=== PATIENT | male | born 1990 | race American Indian/Alaskan Native ===

== ENCOUNTER 2016-12-22 13:43 | Inpatient (IN) | payer MEDICAID, OTHER ==
[2016-12-22 13:44] VITALS: BMI 43.0
[2016-12-22 14:02] VITALS: O2SAT 98
--- NOTE | 2016-12-22 14:06 | ED PDOC ---
Psych Transfer Clearance - Clearance Statement Clearance Statement: Reviewed vital signs, lab results and transfer papers. Patient clinically stable for psychiatric admission.
[2016-12-22] MEDS ORDERED: Magnesium Hydroxide Susp 30 ml UD PO PRN (16:24)
[2016-12-22] MEDS ORDERED: Alum-Mag Hydrox-Simethicone Susp (30 mL) PO PRN (16:24)
[2016-12-22] MEDS ORDERED: Influenza Vaccine(5yr & older) 0.5 ML/45 MCG IM ONE (18:00)
[2016-12-22] MEDS ORDERED: Pneumococcal 23-Valent Vaccine IM ONE (18:00)
[2016-12-23] MEDS ORDERED: DiphenhydrAMINE 50 mg/ml Inj IM PRN (00:06)
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
[2016-12-23 08:04] LABS: T4 6.66 ug/dl (5.5-11.0)
[2016-12-23 08:17] LABS: THYROID STIMULATING HORMONE 1.08 mIU/ML (0.46-4.68)
[2016-12-23] MEDS: Divalproex 500 mg DR(BID formulation) PO SCH ×2 (08:29→16:42)
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
--- NOTE | 2016-12-23 12:08 | RAD ---
HISTORY: new admit COMPARISON: No prior. FINDINGS: LUNGS: The lungs are clear. There is bibasilar atelectasis. PLEURA: No significant pleural effusion identified, no pneumothorax apparent. CARDIOVASCULAR: Normal. OSSEOUS STRUCTURES: No significant abnormalities. VISUALIZED UPPER ABDOMEN: Normal. OTHER FINDINGS: None. IMPRESSION: No active pulmonary disease.
--- NOTE | 2016-12-23 12:22 | PCM.PYCHPN ---
Psychiatric Progress Note - Psychiatric Progress Note Patient seen today, length of contact: Patient evaluated, case discussed with team, chart reviewed Patient Chief Complaint: "What do you want?" Problems Identified/Issues Discussed: Patient is abrasive and evasive, unwilling to engage in interview with the news writer. He is unwilling to discuss his history or medications. 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 He was irritable and difficult to engage. Patient also refused to attend treatment planning team. Medication Change: No Medical Record Reviewed: Yes Mental Status Examination - Cognitive Function Orientation: Person, Place, Situation, Time Memory: Intact (Patient unwilling to engage in interview with the news writer) Attention: WNL Concentration: WNL Association: WNL Fund of Knowledge: WN Decription of patient's judgement and insights: Unable to full assess insight/judgment due to patient's unwillingness to talk with the news writer, but at this time it seems that the patient may be internally preoccupied with poor insight/judgment. - Mood Mood: Depressed - Affect Affect: Constricted - Speech Speech: Appropriate - Formal Thought Process Formal Thought Process: Paranoia, Other (Patient is evasive, likely paranoid and internally preoccupied) Psychotic Thoughts and Behaviors: Unwilling to answer if he is having AH/VH - Suicidal Ideation Suicidal Ideation: No - Homicidal Ideation Homicidal Ideation: No Goal/Treatment Plan - Goal/Treatment Plan Need for Continued Stay: Remain at risks for inpatient hospitalization, Discharge may exacerbated symptoms Progress Toward Problem(s) and Goals/Treatment Plan: 26 yo male with history of schizoaffective disorder vs. bipolar disorder, currently evasive, menacing and unwilling to engage in interview with the news writer. Patient needs continued inpatient hospitalization for treatment and stabilization. -Continue current medications -Will attempt to reengage the patient when he is calmer -Medicine consult appreciated
--- NOTE | 2016-12-23 14:39 | CARD ---
APPROVED REPORT EKG Measurement Heart [id number] <Conclusion> Normal sinus rhythm with sinus arrhythmia Normal ECG
[2016-12-24] MEDS: Divalproex 500 mg DR(BID formulation) PO SCH ×2 (09:10→16:33)
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
[2016-12-25] MEDS: Divalproex 500 mg DR(BID formulation) PO SCH (10:02)
--- NOTE | 2016-12-25 11:54 | PCM.PYCHPN ---
Psychiatric Progress Note - Psychiatric Progress Note Patient seen today, length of contact: discussed with team Patient Chief Complaint: i'll let you know Problems Identified/Issues Discussed: pt observed spitting meds in trash, which has been suspected. rn this am found pills in trash can. pt's depakote level is <10. pt appears to be internally preoccupied and paranoid. he denies that he cheeks his medications. he is irritable and walks away when this publications writer attempts to talk to him. Medication Change: No Medical Record Reviewed: Yes Mental Status Examination - Cognitive Function Orientation: Person, Place, Situation, Time Memory: Intact Attention: WNL Concentration: WNL Association: WN Fund of Knowledge: [facility] Decription of patient's judgement and insights: fair - Mood Mood: Depressed, Other (irritable) - Affect Affect: Constricted - Speech Speech: Appropriate - Formal Thought Process Formal Thought Process: Paranoia, Other (Patient is evasive) Psychotic Thoughts and Behaviors: paranoid, internally preoccupied - Suicidal Ideation Suicidal Ideation: Yes Plan: reports he has suicidal thoughts, but feels safe in hospital - Homicidal Ideation Homicidal Ideation: No Goal/Treatment Plan - Goal/Treatment Plan Need for Continued Stay: Remain at risks for inpatient hospitalization, Discharge may exacerbated symptoms Progress Toward Problem(s) and Goals/Treatment Plan: depression unspecified history of substance abuse continue current treatment- will change medications to liquid form t/c screening for involuntary hospitalization Estimated Date of D/C: 12/25/16
[2016-12-25] MEDS: Haloperidol Lactate 2 mg/ml Liquid PO SCH ×2 (15:20→16:57)
[2016-12-25] MEDS ORDERED: Divalproex 125 mg Sprinkle Capsule PO SCH (17:00)
[2016-12-25] MEDS: Valproic Acid 250 mg/5 ml UD Cup PO SCH (17:00)
[2016-12-26] MEDS: Haloperidol Lactate 2 mg/ml Liquid PO SCH (08:44)
[2016-12-26] MEDS: Valproic Acid 250 mg/5 ml UD Cup PO SCH ×2 (08:44→18:29)
--- NOTE | 2016-12-26 09:32 | PCM.PYCHPN ---
Psychiatric Progress Note - Psychiatric Progress Note Patient seen today, length of contact: discussed with team Patient Chief Complaint: i am taking my medication Problems Identified/Issues Discussed: pt observed cheeking meds. now is taking liquid meds reluctantly. he denies that he was cheeking meds despite being confronted with pills in trash and low depakote level. he is not attending groups. still appears to be internally preoccupied and is pacing. no evidence of side effects with meds Medication Change: Yes (have changed to liquid meds) Medical Record Reviewed: Yes Mental Status Examination - Cognitive Function Orientation: Person, Place, Situation, Time Memory: Intact Attention: WNL Concentration: WNL Association: WNL Fund of Knowledge: [facility] Decription of patient's judgement and insights: superficial insight - Mood Mood: Other (irritable) - Affect Affect: Constricted - Speech Speech: Appropriate - Formal Thought Process Formal Thought Process: Paranoia, Other (Patient is evasive) - Suicidal Ideation Suicidal Ideation: No Plan: denies - Homicidal Ideation Homicidal Ideation: No Goal/Treatment Plan - Goal/Treatment Plan Need for Continued Stay: Remain at risks for inpatient hospitalization, Discharge may exacerbated symptoms Progress Toward Problem(s) and Goals/Treatment Plan: depression unspecified history of substance abuse continue current treatment- will monitor for side effects, check depakote level in 2 days Estimated Date of D/C: 12/25/16
[2016-12-27] MEDS: Valproic Acid 250 mg/5 ml UD Cup PO SCH ×2 (09:13→17:20)
--- NOTE | 2016-12-27 11:33 | PCM.PYCHPN ---
Psychiatric Progress Note - Psychiatric Progress Note Patient seen today, length of contact: discussed with team Patient Chief Complaint: what is the treatment plan Problems Identified/Issues Discussed: pt now taking meds. still internally preoccupied. seems less paranoid. minimizing psychotic symptoms. states suicidal thoughts are less. Medication Change: No ( ) Medical Record Reviewed: Yes Mental Status Examination - Cognitive Function Orientation: Person, Place, Situation, Time Memory: Intact Attention: WNL Concentration: WNL Association: WNL Fund of Knowledge: [facility] Decription of patient's judgement and insights: fair - Mood Mood: Other (irritable) - Affect Affect: Constricted - Speech Speech: Appropriate - Formal Thought Process Formal Thought Process: Paranoia, Other (Patient is evasive) - Suicidal Ideation Suicidal Ideation: No - Homicidal Ideation Homicidal Ideation: No Goal/Treatment Plan - Goal/Treatment Plan Need for Continued Stay: Remain at risks for inpatient hospitalization, Discharge may exacerbated symptoms Progress Toward Problem(s) and Goals/Treatment Plan: depression unspecified history of substance abuse continue current treatment- will monitor for side effects, check depakote level tomorrow arrange aftercare/discharge next week Estimated Date of D/C: 12/31/16
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
[2016-12-28] MEDS: Valproic Acid 250 mg/5 ml UD Cup PO SCH ×2 (09:08→17:13)
--- NOTE | 2016-12-28 11:53 | PCM.PYCHPN ---
Psychiatric Progress Note - Psychiatric Progress Note Patient seen today, length of contact: discussed with team Patient Chief Complaint: pt has remained internally preoccupied with disorganized thinking Problems Identified/Issues Discussed: admitted for suicidal attempt by trying to jump [place] and has been overtly psychotic and paranoid and noncompliant with meds. DSM 5 Symptoms Update: schizoaffective disorder Medication Change: No ( ) Medical Record Reviewed: Yes Mental Status Examination - Cognitive Function Orientation: Person, Place, Situation, Time Memory: Intact Attention: Poor Concentration: Poor Association: WNL Fund of Knowledge: WNL - Mood Mood: Other (irritable) - Affect Affect: Constricted - Speech Speech: Appropriate - Formal Thought Process Formal Thought Process: Paranoia, Other (Patient is evasive) - Suicidal Ideation Suicidal Ideation: No - Homicidal Ideation Homicidal Ideation: No Goal/Treatment Plan - Goal/Treatment Plan Need for Continued Stay: Remain at risks for inpatient hospitalization, Discharge may exacerbated symptoms Progress Toward Problem(s) and Goals/Treatment Plan: will continue to titrate meds based on VPA level and encourage compliance with meds. VPA= 41 will increase depakote to 750 mg bid to stabilize the mood and engage pt in therapy. Estimated Date of D/C: 12/31/16
[2016-12-29] MEDS: Valproic Acid 250 mg/5 ml UD Cup PO SCH ×2 (08:36→16:55)
--- NOTE | 2016-12-29 13:21 | PCM.PYCHPN ---
Psychiatric Progress Note - Psychiatric Progress Note Patient seen today, length of contact: discussed with team Patient Chief Complaint: pt has remained internally preoccupied with disorganized thinking Problems Identified/Issues Discussed: admitted for suicidal attempt [place] and has been overtly psychotic and paranoid and noncompliant with meds. DSM 5 Symptoms Update: schizoaffective disorder Medication Change: No ( ) Medical Record Reviewed: Yes Mental Status Examination - Cognitive Function Orientation: Person, Place, Situation, Time Memory: Intact Attention: Poor Concentration: Poor Association: WNL Fund of Knowledge: WNL - Mood Mood: Other (irritable) - Affect Affect: Constricted - Speech Speech: Appropriate - Formal Thought Process Formal Thought Process: Paranoia, Other (Patient is evasive) - Suicidal Ideation Suicidal Ideation: No - Homicidal Ideation Homicidal Ideation: No Goal/Treatment Plan - Goal/Treatment Plan Need for Continued Stay: Remain at risks for inpatient hospitalization, Discharge may exacerbated symptoms Progress Toward Problem(s) and Goals/Treatment Plan: will continue to titrate meds based on VPA level and encourage compliance with meds. VPA= 41 will increase depakote to 750 mg bid to stabilize the mood and engage pt in therapy. will continue to titrate the meds to stabilize the pt. Estimated Date of D/C: 12/31/16
[2016-12-30] MEDS: Valproic Acid 250 mg/5 ml UD Cup PO SCH ×2 (09:06→16:53)
--- NOTE | 2016-12-30 12:45 | PCM.PYCHPN ---
Psychiatric Progress Note - Psychiatric Progress Note Patient seen today, length of contact: discussed with team Patient Chief Complaint: when can i go home Problems Identified/Issues Discussed: pt seen in team. he is more goal directed and less paranoid. he is able to advocate for his needs and is feeling he wants to leave soon. he is asking for aftercare to be arrange. he states he will take his medications out of the hospital. he denies any side effects. Medication Change: No ( ) Medical Record Reviewed: Yes Mental Status Examination - Cognitive Function Orientation: Person, Place, Situation, Time Memory: Intact Attention: WNL Concentration: WNL Association: [facility] Fund of Knowledge: [facility] Decription of patient's judgement and insights: improved - Mood Mood: Other (irritable) - Affect Affect: Constricted - Speech Speech: Appropriate - Formal Thought Process Formal Thought Process: Paranoia - Suicidal Ideation Suicidal Ideation: No - Homicidal Ideation Homicidal Ideation: No Goal/Treatment Plan - Goal/Treatment Plan Need for Continued Stay: Remain at risks for inpatient hospitalization, Discharge may exacerbated symptoms Progress Toward Problem(s) and Goals/Treatment Plan: depression unspecified history of substance abuse continue current treatment- discharge friday with f/u at [facility] and [place] [facility] [place] Estimated Date of D/C: 01/01/17
--- NOTE | 2016-12-31 09:34 | PCM.PYCHPN ---
Psychiatric Progress Note - Psychiatric Progress Note Patient seen today, length of contact: discussed with team Patient Chief Complaint: i am just resting doc Problems Identified/Issues Discussed: pt denies medication side effects. less isolative. states he wants to go home tomorrow. Medication Change: No ( ) Medical Record Reviewed: Yes Mental Status Examination - Cognitive Function Orientation: Person, Place, Situation, Time Memory: Intact Attention: WNL Concentration: WNL Association: WNL Fund of Knowledge: [facility] Decription of patient's judgement and insights: fair - Mood Mood: Neutral - Affect Affect: Constricted - Speech Speech: Appropriate - Formal Thought Process Formal Thought Process: Other (somewhat internally preoccupied) - Suicidal Ideation Suicidal Ideation: No - Homicidal Ideation Homicidal Ideation: No Goal/Treatment Plan - Goal/Treatment Plan Need for Continued Stay: Remain at risks for inpatient hospitalization, Discharge may exacerbated symptoms Progress Toward Problem(s) and Goals/Treatment Plan: depression unspecified history of substance abuse continue current treatment- discharge tomorrow with f/u at [facility] and a php program at [facility] [place] Estimated Date of D/C: 01/01/17
[2016-12-31] MEDS: Valproic Acid 250 mg/5 ml UD Cup PO SCH ×2 (09:38→16:20)
--- NOTE | 2016-12-31 09:38 | CP.PCM.PN ---
Subjective - Date & Time of Evaluation Date of Evaluation: 12/31/16 Time of Evaluation: 09:35 - Subjective Subjective: 26 year old male was seen resting comfortably at bedside for follow up of fissure to the bottom of right hallux. Patient is in no acute distress. He denies any pain to his foot. Denies n/v/f/c/sob/cp. Objective - Vital Signs/Intake and Output Vital Signs (last 24 hours): Temp Pulse Resp BP Pulse Ox 97.2 F L 54 L 18 119/60 98 12/31/16 09:00 12/31/16 09:00 12/31/16 09:00 12/31/16 09:00 12/22/16 13:57 - Medications Medications: Current Medications Acetaminophen (Tylenol 325mg Tab) 650 mg PO Q4 PRN PRN Reason: Pain, moderate (4-7) Al Hydrox/Mg Hydrox/Simethicone (Maalox Plus 30 Ml) 30 ml PO Q4 PRN PRN Reason: Dyspepsia Benztropine Mesylate (Cogentin) 1 mg PO BID [facility] Last Admin: 12/30/16 09:08 Dose: 1 mg Diphenhydramine HCl (Benadryl) 50 mg PO Q6 PRN PRN Reason: Extrapyramidal Symptoms Last Admin: 12/24/16 19:36 Dose: 50 mg Diphenhydramine HCl (Benadryl) 50 mg IM Q6 PRN PRN Reason: EPS if unable to take po Diphenhydramine HCl (Benadryl) 50 mg PO HS PRN PRN Reason: Sleep Haloperidol (Haldol) 5 mg PO Q4 PRN PRN Reason: Agitation Haloperidol (Haldol) 10 mg PO BID [facility] Last Admin: 12/30/16 16:54 Dose: 10 mg Haloperidol Lactate (Haldol) 5 mg IM Q4 PRN PRN Reason: Agitation, Unable to Take PO Lorazepam (Ativan) 2 mg PO Q6 PRN PRN Reason: Anixety/Agitation Stop: 01/05/17 16:25 Last Admin: 12/24/16 19:36 Dose: 2 mg Lorazepam (Ativan) 2 mg IM Q4 PRN PRN Reason: Anxiety/Agitation,Unable PO Magnesium Hydroxide (Milk Of Magnesia) 30 ml PO HS PRN PRN Reason: Constipation Sertraline HCl (Zoloft) 50 mg PO DAILY [facility] Last Admin: 12/30/16 09:08 Dose: 50 mg Trazodone HCl (Desyrel) 50 mg PO HS [facility] Last Admin: 12/30/16 21:15 Dose: 50 mg Valproate Sodium (Depakene Oral Soln) 750 mg PO BID [facility] Last Admin: 12/30/16 16:53 Dose: 750 mg - Constitutional Appears: Well, Non-toxic, No Acute Distress - Extremities Exam Additional comments: Right lower extremity focused exam: VASC: Palpable DP and PT noted 2/4 bilaterally. 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 No drainage, no active bleeding. No erythema or sign of infection. Plantar aspect of feet noted to be xerotic bilaterally. Hyperkeratotic calluses also noted to lateral aspect of 5th digit DPIJ bilaterally, as well as medial aspect of distal hallux bilaterally. ORTHO: Tenderness on palpation to plantar aspect of hallux IPJ bilaterally NEURO: Gross sensation intact - Neurological Exam Neurological Exam: Alert, Awake, Oriented x3 - Psychiatric Exam Psychiatric exam: Normal Affect, Normal Mood Assessment and Plan - Assessment and Plan (Free Text) Assessment: 26 year old male patient with small lesion to plantar aspect of right hallux IPJ , multiple callus build up bilateral feet Plan: Patient examined and evaluated Chart and vitals reviewed Discussed with attending, Dr. Aquino labs and vitals reviewed Right foot hallux lesion dressed with betadine and DSD Recommended lotion be applied to feet b/l. Patient refused lotion Patient stable from podiatry standpoint. Podiatry will follow in-house
[2017-01-01 09:11] VITALS: BP 121/65; PULSE 59; RESP 18; TEMP 98.1
[2017-01-01] MEDS: Valproic Acid 250 mg/5 ml UD Cup PO SCH (09:16)
--- NOTE | 2017-01-01 09:54 | PCM.PYCHDC ---
Mental Status Examination - Mental Status Examination Orientation: Person, Place, Situation, Time Memory: Intact Mood: Anxious (regarding discharge) Affect: Constricted Speech: Appropriate Attention: WNL Concentration: WNL Association: WNL Fund of Knowledge: WNL Formal Thought Process: Paranoia (less paranoid, less internally preoccupied. denies a/v hallucinations) Description of patient's judgement and insight: fair Psychotic Thoughts and Behaviors: paranoid, internally preoccupied Suicidal Ideation: No Current Homicidal Ideation?: No Plan: pt is denying any suicidal or homicidal thoughts, plans or intent Discharge Summary - Discharge Note Reason for Hospitalization: psychosis, suicidal thoughts Psychiatric History (includes Medical, Family, Personal Hx): ER VISITS, SUBSTANCE USE, INPT ADM Laboratory Data: depakote level 44 Consultations:: List each consultation separately and include: 1. Reason for request. 2. Findings. 3. Follow-up Consultations: seen by hospitalist Summary of Hospital Course include:: 1. Description of specific treatment plan utilized for patients during their course of treatmen. 2. Summarize the time- course for resolution of acute symptoms and/or regressed behaviors. 3. Describe issues identified and worked on during hospitalization. 4. Describe medication utilized. 5. Describe medical problems identified and treated. 6. Reassessment of suicide risk Summary of Hospital Course: pt was admitted to [facility] and oriented to the unit. placed on routine safety protocols. was started on his outpt medications. was isolating in room and observed spitting out his meds. his initial depakote level was 0. he was switched to liquid meds which he took. his psychotic symptoms improved and he was more visible in the milieu. he became discharge focused and was asking about aftercare. he was agreeable to attend a [facility] program and allow [facility] to help with his treatment. he was denying medication side effects. he was denying any suicidal or homicidal thoughts at the time of discharge. - Final Diagnosis (DSM 5) Condition upon Discharge: STABLE DSM 5: schizoaffective disorder, depressive Disposition: HOME/ ROUTINE Follow-up Treatment Plan: follow up with aftercare appointments as directed take medications as prescribed do not use alcohol, tobacco or other illicit substances call 911 if any suicidal or homicidal thoughts Prescriptions/Medication Reconciliation: Benztropine [Cogentin] 1 mg PO BID #60 tab Divalproex [Depakote DR (*BID*)] 250 mg PO BID #60 ect Divalproex [Robina AN(*BID*)] 500 mg PO BID #60 ect traZODone [Desyrel] 50 mg PO HS #30 tab Haloperidol [Haldol] 10 mg PO BID #60 tab Sertraline [Zoloft] 50 mg PO DAILY #30 tab - Smoking Cessation Smoking Cessation Medication prescribed: No Reason for not providing: declines - Antipsychotic Medications Pt discharged on 2 or more routine antipsychotic medications: No
== END 2017-01-01 15:30 | disposition home or self-care (01) | DRG 430 ==
LOC: H.ER 13:43 → H.ERHOLD 14:04 → H.STEP 15:00 → H.PSYCH 12-23 20:14
PROVIDERS: ADMIT Psychiatry & Neurology Psychiatry; ATTEND Psychiatry & Neurology Psychiatry
PROC: GZ51ZZZ Individual Psychotherapy, Behavioral (ICD-10-PCS; 2016-12-22)
PROC: GZHZZZZ Group Psychotherapy (ICD-10-PCS; principal; 2016-12-24)
PROC: 0HDMXZZ Extraction of Right Foot Skin, External Approach (ICD-10-PCS; 2016-12-27)
PROC: 0HDNXZZ Extraction of Left Foot Skin, External Approach (ICD-10-PCS; 2016-12-27)
DX: F25.0 Schizoaffective disorder, bipolar type (principal); R45.851 Suicidal ideations; I10 Essential (primary) hypertension; E78.00 Pure hypercholesterolemia, unspecified; J45.909 Unspecified asthma, uncomplicated; G47.30 Sleep apnea, unspecified; G43.909 Migraine, unspecified, not intractable, without status migrainosus; F17.210 Nicotine dependence, cigarettes, uncomplicated; F12.90 Cannabis use, unspecified, uncomplicated; L84 Corns and callosities

== ENCOUNTER 2017-01-05 17:37 | Inpatient (IN) | payer MEDICAID, OTHER ==
[2017-01-05 17:45] VITALS: BMI 34.0
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
[2017-01-05 19:51] LABS: BASO # 0.1 K/uL (0.0-0.2); BASO % 0.8 % (0.0-2.0); EOS # 0.1 K/uL (0.0-0.7); EOS % 1.7 % (0.0-4.0); HEMATOCRIT 40.2 % (35.0-51.0); LYMPH # 2.1 K/uL (1.0-4.3); LYMPH % 28.2 % (20.0-40.0); MEAN CELL VOLUME 82.1 fl (80.0-94.0); MEAN CORPUSCULAR HEMOGLOBIN 26.5 pg (27.0-31.0); MEAN CORPUSCULAR HGB CONC 32.3 g/dL (33.0-37.0); MEAN PLATELET VOLUME 11.4 fl (7.2-11.7); MONO # 0.6 K/uL (0.0-0.8); NEUT # 4.6 K/uL (1.8-7.0); NEUT % 61.3 % (50.0-75.0); RED CELL DISTRIBUTION WIDTH 15.6 % (11.5-14.5); WHITE BLOOD COUNT 7.5 K/uL (4.8-10.8)
[2017-01-05 19:57] LABS: RBC URINE 2 /hpf (0-3); URINE BACTERIA RARE (<OCC); URINE BILIRUBIN NEGATIVE (NEGATIVE); URINE BLOOD NEGATIVE (NEGATIVE); URINE COLOR YELLOW (YELLOW); URINE GLUCOSE (UA) NEG (Normal); URINE KETONE TRACE mg/dL (NEGATIVE); URINE LEUKOCYTE ESTERASE NEG Leu/uL (Negative); URINE PROTEIN NEGATIVE (NEGATIVE); WBC URINE 2 /hpf (0-5)
[2017-01-05 19:58] LABS: ALB/GLOB RATIO 1.2 (1.0-2.1); ALCOHOL SERUM < 10 mg/dl (0-10); ALKALINE PHOSPHATASE 68 U/L (38-126); ALT/SGPT 25 U/L (21-72); AST/SGOT 21 U/L (17-59); BILIRUBIN,TOTAL 0.6 mg/dl (0.2-1.3); BLOOD UREA NITROGEN 8 mg/dl (9-20); CALCIUM 9.4 mg/dL (8.4-10.2); CARBON DIOXIDE 27 mmol/L (22-30); CHLORIDE 105 mmol/L (98-107); GFR AFRICAN-AMERICAN > 60; GLUCOSE,RANDOM 88 mg/dL (75-110); POTASSIUM 4.3 MMOL/L (3.6-5.0); SODIUM 143 mmol/l (132-148); TOTAL PROTEIN 6.9 G/DL (6.3-8.2)
[2017-01-05] MEDS ORDERED: Magnesium Hydroxide Susp 30 ml UD PO PRN (22:06)
[2017-01-05] MEDS ORDERED: Alum-Mag Hydrox-Simethicone Susp (30 mL) PO PRN (22:06)
[2017-01-05] MEDS ORDERED: DiphenhydrAMINE 50 mg/ml Inj IM PRN (22:06)
[2017-01-06] MEDS: Valproic Acid 250 mg/5 ml UD Cup PO SCH ×2 (08:42→18:07)
--- NOTE | 2017-01-06 13:38 | PCM.PSYCH ---
Initial Psychiatric Evaluation - Initial Psychiatric Evaluation Type of Admission: Voluntary Legal Status: Capacity Chief Complaint (in patient's own words): i feel bad Patient's Reaction to Hospitalization: cooperative History of Present Illness and Precipitating Events: pt returned to ER shortly after his discharge. states he did not get his medications. states he is depressed. states he is having suicidal thoughts. he hears voices. he is homeless. he is stating he started to feel bad almost immediately after leaving the hospital. he states he can stay safe on the unit. he does not want to take depot from of haldol. Current Medications: Active Medications Generic Name Dose Route Start Last Admin Trade Name Freq PRN Reason Stop Dose Admin Acetaminophen 650 mg 01/05/17 22:06 Tylenol 325mg Tab PO Q4 PRN T>101,pain 1-7,headache Al Hydrox/Mg Hydrox/Simethicone 30 ml 01/05/17 22:06 Maalox Plus 30 Ml PO Q4 PRN Dyspepsia Benztropine Mesylate 1 mg 01/06/17 09:00 01/06/17 08:42 Cogentin PO 1 mg BID NETO Administration Diphenhydramine HCl 50 mg 01/05/17 22:06 Benadryl PO Q6 PRN Extrapyramidal Symptoms Diphenhydramine HCl 50 mg 01/05/17 22:06 Benadryl IM Q6 PRN Extrapyramidal S/S Unable PO Haloperidol 5 mg 01/05/17 22:06 Haldol PO Q4 PRN Agitation Haloperidol 10 mg 01/06/17 09:00 01/06/17 08:44 Haldol PO 10 mg BID NETO Administration Haloperidol Lactate 5 mg 01/05/17 22:06 Haldol IM Q4 PRN Agitation, Unable to Take PO Lorazepam 2 mg 01/05/17 22:06 01/05/17 22:36 Ativan PO 2 mg Q4 PRN Administration Anxiety/Agitation Lorazepam 2 mg 01/05/17 22:06 Ativan IM Q4 PRN Anxiety/Agitation,Unable PO Magnesium Hydroxide 30 ml 01/05/17 22:06 Milk Of Magnesia PO HS PRN Constipation Sertraline HCl 50 mg 01/06/17 09:00 01/06/17 08:42 Zoloft PO 50 mg DAILY NETO Administration Trazodone HCl 50 mg 01/06/17 22:00 Desyrel PO HS NETO Valproate Sodium 750 mg 01/06/17 09:00 01/06/17 08:42 Depakene Oral Soln PO 750 mg BID NETO Administration Past Psychiatric History - Past Psychiatric History Previous Treatment History: Inpatient Prior Professional Help: multiple admissions History of Abuse: denies History of ETOH/Drug Use: smoking mj, denies use of alcohol. denies tobacco use. History of Family Illness: unknown Pertinent Medical Hx (Current Medical&Sleep Prob, Allergies): Allergies Allergy/AdvReac Type Severity Reaction Status Date / Time pollen extracts Allergy REDNESS Verified 01/05/17 17:55 No Known Home Med 01/03/17 Review of Systems - Psychiatric Psychiatric: As Per HPI Mental Status Examination - Personal Presentation Personal Presentation: Looks stated age - Affect Affect: Broad - Motor Activity Motor Activity: Calm - Reliability in Providing Information Reliability in Providing Information: Poor, due to alteration in thoughts, Poor , due to altered mood - Speech Speech: Disorganized - Mood Mood: Depressed - Formal Thought Process Formal Thought Process: Paranoia, Loosening of associations - Hallucinations/Delusions Hallucinations: Auditory - Obsessions/Compulsions Obsessions: No Compulsions: No - Cognitive Functions Orientation: Person, Place, Situation, Time Sensorium: Alert Attention/Concentration: Easily distracted Abstract Thinking: Witten Estimate of Intelligence: Average Judgement: Intact, as evidence by: Insight regarding need for hospitalization Memory: Recent intact, as evidence by: Ability to recall events of the day, Remote intact, as evidenced by: Abilit to recall sig. life events - Risk Risk: Suicidal (states he feels safe here and will outreach to staff if he feels suicidal), Diminished functioning - Strength & Assets Inventory Strength & Assets Inventory: Intelligence - Limitations Limitations: Other (does not follow up) DSM 5 DX - DSM 5 DSM 5 Diagnosis: schizoaffective disorder, bipolar type - Recommended/Plan of Treatment Treatment Recommendations and Plan of Treatment: admit to [facility] for safety and observation gather collateral information provide supportive therapy adjust medications- restart previous meds. encourage use of depot haldol. hospitalist consult disposition planning Projected ELOS: 3-5 days - Smoking Cessation Smoking Cessation Initiated: No Reason for not providing: declines
--- NOTE | 2017-01-06 14:41 | CP.PCM.CON ---
History of Present Illness - History of Present Illness History of Present Illness: Reason for consult: per protocol HPI: This is a 26 year old male with a history of prior psychiatric admissions, admitted for suicidal ideation. Patient has very short answers, does not wish to be touched, examined by this author. Vitals are stable, pt is in no apparent acute distress. ROS: Per HPI, all other systems reviewed negative by me PMH: denies PSH: denies FH: denies SH: denies tobacco, etoh, ivdu ALLERGIES: seasonal MEDICATIONS: states he does not take medication at home Surrogate Decision Maker: in chart GENERAL APPEARANCE: Well developed, well nourished, alert, appears to be in no acute distress. HEAD: normocephalic, atraumatic EYES: PERRL, EOMI. Vision is grossly intact. EARS: hearing grossly intact NOSE: No nasal discharge. THROAT: refused exam NECK: refused exam CARDIAC: refused exam LUNGS: refused exam ABDOMEN: refused exam MUSKULOSKELETAL: refused exam BACK: refused exam EXTREMITIES: refused exam NEUROLOGICAL: refused exam SKIN: refused exam PSYCHIATRIC: refused to answer subsequent questions LABS: 01/05/17 19:42 01/05/17 19:42 ASSESSMENT AND PLAN This is a 26 year old male with a history of prior psychiatric admissions, admitted for suicidal ideation. Patient has very short answers, does not wish to be touched, examined by this author. Vitals are stable, pt is in no apparent acute distress. Suicidal ideation Depression Management per psych Past Patient History - Infectious Disease Hx of Infectious Diseases: None - Tetanus Immunizations Tetanus Immunization: Unknown - Past Medical History & Family History Past Medical History?: Yes - Past Social History Smoking Status: Current Some Days Smoker - CARDIAC Hx Hypercholesterolemia: Yes Hx Hypertension: Yes - PULMONARY Hx Asthma: Yes Hx Sleep Apnea: Yes - NEUROLOGICAL Hx Migraine: Yes Hx Seizures: No - HEENT Hx HEENT Problems: No - RENAL Hx Chronic Kidney Disease: No - ENDOCRINE/METABOLIC Hx Endocrine Disorders: No - HEMATOLOGICAL/ONCOLOGICAL Hx Human Immunodeficiency Virus (HIV): No - INTEGUMENTARY Hx Dermatological Problems: No - MUSCULOSKELETAL/RHEUMATOLOGICAL Hx Fractures: Yes (hx. right wrist) - GASTROINTESTINAL Hx Gastrointestinal Disorders: No - GENITOURINARY/GYNECOLOGICAL Hx Sexually Transmitted Disorders: No - PSYCHIATRIC Hx Depression: Yes Hx Substance Use: Yes (daily mj) - SURGICAL HISTORY Hx Surgeries: No - ANESTHESIA Hx Anesthesia: No Hx Anesthesia Reactions: No Hx Malignant Hyperthermia: No Meds Allergies/Adverse Reactions: Allergies Allergy/AdvReac Type Severity Reaction Status Date / Time pollen extracts Allergy REDNESS Verified 01/05/17 17:55 - Medications Medications: Current Medications Acetaminophen (Tylenol 325mg Tab) 650 mg PO Q4 PRN PRN Reason: T>101,pain 1-7,headache Al Hydrox/Mg Hydrox/Simethicone (Maalox Plus 30 Ml) 30 ml PO Q4 PRN PRN Reason: Dyspepsia Benztropine Mesylate (Cogentin) 1 mg PO BID [facility] Last Admin: 01/06/17 08:42 Dose: 1 mg Diphenhydramine HCl (Benadryl) 50 mg PO Q6 PRN PRN Reason: Extrapyramidal Symptoms Diphenhydramine HCl (Benadryl) 50 mg IM Q6 PRN PRN Reason: Extrapyramidal S/S Unable PO Haloperidol (Haldol) 5 mg PO Q4 PRN PRN Reason: Agitation Haloperidol (Haldol) 10 mg PO BID [facility] Last Admin: 01/06/17 08:44 Dose: 10 mg Haloperidol Lactate (Haldol) 5 mg IM Q4 PRN PRN Reason: Agitation, Unable to Take PO Lorazepam (Ativan) 2 mg PO Q4 PRN PRN Reason: Anxiety/Agitation Last Admin: 01/05/17 22:36 Dose: 2 mg Lorazepam (Ativan) 2 mg IM Q4 PRN PRN Reason: Anxiety/Agitation,Unable PO Magnesium Hydroxide (Milk Of Magnesia) 30 ml PO HS PRN PRN Reason: Constipation Sertraline HCl (Zoloft) 50 mg PO DAILY [facility] Last Admin: 01/06/17 08:42 Dose: 50 mg Trazodone HCl (Desyrel) 50 mg PO HS [facility] Valproate Sodium (Depakene Oral Soln) 750 mg PO BID [facility] Last Admin: 01/06/17 08:42 Dose: 750 mg Results - Vital Signs Recent Vital Signs: Last Vital Signs Temp 97.7 F 01/06/17 09:00 Pulse 72 01/06/17 09:00 Resp 18 01/06/17 09:00 BP 123/71 01/06/17 09:00 Pulse Ox 99 01/05/17 21:58 - Labs Result Diagrams: 01/05/17 19:42 01/05/17 19:42 Labs: Laboratory Results - last 24 hr 01/06/17 12:17 Valproic Acid 42.0 L
[2017-01-07] MEDS: Valproic Acid 250 mg/5 ml UD Cup PO SCH ×2 (10:19→16:47)
--- NOTE | 2017-01-07 10:49 | PCM.PYCHPN ---
Psychiatric Progress Note - Psychiatric Progress Note Patient seen today, length of contact: discussed with team Patient Chief Complaint: i guess i'll see how it goes Problems Identified/Issues Discussed: pt paranoid, irritable. isolates in room. he has little peer interaction. he denies medication side effects. he is refusing to consider allowing depot from of haldol Medication Change: No Medical Record Reviewed: Yes Mental Status Examination - Cognitive Function Orientation: Person, Place, Situation, Time Memory: Intact Attention: WNL Concentration: WNL Association: WNL Fund of Knowledge: WN Decription of patient's judgement and insights: fair - Mood Mood: Depressed, Other (irritable) - Affect Affect: Broad - Speech Speech: Appropriate - Formal Thought Process Formal Thought Process: Paranoia, Loosening of associations - Suicidal Ideation Suicidal Ideation: No - Homicidal Ideation Homicidal Ideation: No Goal/Treatment Plan - Goal/Treatment Plan Need for Continued Stay: Remain at risks for inpatient hospitalization, Severe functional impairment Progress Toward Problem(s) and Goals/Treatment Plan: schizoaffective disorder will continue current treatment will receck depakote level in 2 days- was 47 yesterday will continue to monitor closely for cheeking meds encourage socialization Estimated Date of D/C: 01/17/17
[2017-01-08] MEDS: Valproic Acid 250 mg/5 ml UD Cup PO SCH ×2 (10:08→17:05)
--- NOTE | 2017-01-08 21:29 | PCM.PYCHPN ---
Psychiatric Progress Note - Psychiatric Progress Note Patient seen today, length of contact: chart review case discussed with team Patient Chief Complaint: feeling like people are watching me, staff report pt remains isolative , not responding to redirection to attend groups Problems Identified/Issues Discussed: paranoia, isolative, not participating in unit based activities Medical Problems: per chart Diagnostic Results: per psychiatry per medicine per nursing per social insurance administrator per recreational therapy DSM 5 Symptoms Update: paranoia, isolation Medication Change: No Medical Record Reviewed: Yes Mental Status Examination - Cognitive Function Orientation: Person, Place, Situation, Time Memory: Intact Attention: WNL Concentration: WNL Association: WNL Fund of Knowledge: [facility] Decription of patient's judgement and insights: impaired - Mood Mood: Depressed, Other (irritable) - Affect Affect: Constricted - Speech Speech: Soft - Formal Thought Process Formal Thought Process: Paranoia, Loosening of associations - Suicidal Ideation Suicidal Ideation: No - Homicidal Ideation Homicidal Ideation: No Goal/Treatment Plan - Goal/Treatment Plan Need for Continued Stay: Remain at risks for inpatient hospitalization, Severe functional impairment Estimated Date of D/C: 01/17/17 - Smoking Cessation Smoking Cessation Initiated: No Reason for not providing: deferred
[2017-01-09] MEDS: Valproic Acid 250 mg/5 ml UD Cup PO SCH ×3 (08:42→21:27)
--- NOTE | 2017-01-09 17:23 | PCM.PYCHPN ---
Psychiatric Progress Note - Psychiatric Progress Note Patient seen today, length of contact: chart review case discussed with team Patient Chief Complaint: feeling like depression is staying the same, pt remains isolative , not responding to redirection to attend groups Problems Identified/Issues Discussed: paranoia, isolative, not participating in unit based activities Medical Problems: per chart Diagnostic Results: per psychiatry per medicine per nursing per social sciences research scientist per recreational therapy DSM 5 Symptoms Update: isolation anhedonia paranoia psychosis Medication Change: No Medical Record Reviewed: Yes Mental Status Examination - Cognitive Function Orientation: Person, Place, Situation, Time Memory: Intact Attention: WNL Concentration: WNL Association: [facility] Fund of Knowledge: [facility] Decription of patient's judgement and insights: impaired - Mood Mood: Depressed, Other (irritable) - Affect Affect: Constricted - Speech Speech: Soft - Formal Thought Process Formal Thought Process: Paranoia, Loosening of associations - Suicidal Ideation Suicidal Ideation: No - Homicidal Ideation Homicidal Ideation: No Goal/Treatment Plan - Goal/Treatment Plan Need for Continued Stay: Remain at risks for inpatient hospitalization, Severe functional impairment Progress Toward Problem(s) and Goals/Treatment Plan: inpt milieu adjust meds per status-will increase depakene to 1000mg po hs and maintaine 750mg am starting tomorrow will give depakene 250mg po x one dose now (will equal 750mg given in pm) will obtain valproic acid level [id number] in am discharge planning in progress Estimated Date of D/C: 01/17/17 - Smoking Cessation Smoking Cessation Initiated: No Reason for not providing: deferred
[2017-01-10] MEDS: Valproic Acid 250 mg/5 ml UD Cup PO SCH ×2 (09:52→21:29)
[2017-01-10 11:13] VITALS: O2SAT 99
--- NOTE | 2017-01-10 19:23 | PCM.PYCHPN ---
Psychiatric Progress Note - Psychiatric Progress Note Patient seen today, length of contact: chart review case discussed with team Patient Chief Complaint: depression is improving each day, reports thinking about his future and what he has to do to get his life back in order, staff reports somewhat less isolative but does remain in room, denies side effects from increased depakote Problems Identified/Issues Discussed: less paranoid, somewhat less isolative, not totally participating in unit based activities Medical Problems: per chart Diagnostic Results: per psychiatry per medicine per nursing per case management social worker per recreational therapy DSM 5 Symptoms Update: resolving audiohallucinations isolation somewhat improved Medication Change: No Medical Record Reviewed: Yes Mental Status Examination - Cognitive Function Orientation: Person, Place, Situation, Time Memory: Intact Attention: WNL Concentration: WNL Association: WN Fund of Knowledge: [facility] Decription of patient's judgement and insights: impaired - Mood Mood: Depressed, Other (irritable) - Affect Affect: Constricted - Speech Speech: Soft - Formal Thought Process Formal Thought Process: Paranoia, Loosening of associations - Suicidal Ideation Suicidal Ideation: No - Homicidal Ideation Homicidal Ideation: No Goal/Treatment Plan - Goal/Treatment Plan Need for Continued Stay: Remain at risks for inpatient hospitalization, Severe functional impairment Progress Toward Problem(s) and Goals/Treatment Plan: inpt milieu adjust meds per status will obtain valproic acid level [id number] in am discharge planning in progress Estimated Date of D/C: 01/17/17 - Smoking Cessation Smoking Cessation Initiated: No Reason for not providing: deferred
[2017-01-11] MEDS: Valproic Acid 250 mg/5 ml UD Cup PO SCH ×2 (08:33→21:11)
--- NOTE | 2017-01-11 10:18 | PCM.PYCHPN ---
Psychiatric Progress Note - Psychiatric Progress Note Patient seen today, length of contact: Patient evaluated, chart reviewed, case discussed with team Patient Chief Complaint: "I'm feeling down" Problems Identified/Issues Discussed: Patient reports that he continues to feel down and depressed. No ideation to harm himself or others. He does not want to get out of bed at times due to feeling depressed. He denies AH/VH/paranoia at this time. He has been eating and sleeping. Diagnostic Results: 01/09/17- VPA 48.3 DSM 5 Symptoms Update: Schizoaffective disorder Medication Change: No Medical Record Reviewed: Yes Mental Status Examination - Cognitive Function Orientation: Person, Place, Situation, Time Memory: Intact Attention: WNL Concentration: WNL Association: WNL Fund of Knowledge: [facility] Decription of patient's judgement and insights: Fair I/J - Mood Mood: Depressed - Affect Affect: Constricted - Speech Speech: Soft - Formal Thought Process Formal Thought Process: Paranoia, Loosening of associations Psychotic Thoughts and Behaviors: Denies AH/VH/paranoia/delusions, but continues to be guarded, likely paranoid - Suicidal Ideation Suicidal Ideation: No - Homicidal Ideation Homicidal Ideation: No Goal/Treatment Plan - Goal/Treatment Plan Need for Continued Stay: Remain at risks for inpatient hospitalization, Discharge may exacerbated symptoms, Severe functional impairment Progress Toward Problem(s) and Goals/Treatment Plan: 26 yo male w/ h/o schizoaffective disorder, admitted for acute decompensation in the context of non-compliance, continues to be depressed and seems to be paranoid, needs continued admission for treatment and stabilization. -Continue current medications -Recheck VPA level -Individual and group therapy Estimated Date of D/C: 01/17/17
--- NOTE | 2017-01-11 11:24 | CP.PCM.CON ---
History of Present Illness - History of Present Illness History of Present Illness: 26 y/o male seen at bedside in psych with pmhx of suicidal ideations, complaining of pain in his feet. Patient states that he has calluses that hurt when he walks and wears shoe gear. Patient denies any other complaints at this time. He denies n/f/v/d/sob. Review of Systems - Constitutional Constitutional: As Per HPI Past Patient History - Infectious Disease Hx of Infectious Diseases: None - Tetanus Immunizations Tetanus Immunization: Unknown - Past Medical History & Family History Past Medical History?: Yes - Past Social History Smoking Status: Current Some Days Smoker - CARDIAC Hx Hypercholesterolemia: Yes Hx Hypertension: Yes - PULMONARY Hx Asthma: Yes Hx Sleep Apnea: Yes - NEUROLOGICAL Hx Migraine: Yes Hx Seizures: No - HEENT Hx HEENT Problems: No - RENAL Hx Chronic Kidney Disease: No - ENDOCRINE/METABOLIC Hx Endocrine Disorders: No - HEMATOLOGICAL/ONCOLOGICAL Hx Human Immunodeficiency Virus (HIV): No - INTEGUMENTARY Hx Dermatological Problems: No - MUSCULOSKELETAL/RHEUMATOLOGICAL Hx Fractures: Yes (hx. right wrist) - GASTROINTESTINAL Hx Gastrointestinal Disorders: No - GENITOURINARY/GYNECOLOGICAL Hx Sexually Transmitted Disorders: No - PSYCHIATRIC Hx Depression: Yes Hx Substance Use: Yes (daily mj) - SURGICAL HISTORY Hx Surgeries: No - ANESTHESIA Hx Anesthesia: No Hx Anesthesia Reactions: No Hx Malignant Hyperthermia: No Meds Allergies/Adverse Reactions: Allergies Allergy/AdvReac Type Severity Reaction Status Date / Time pollen extracts Allergy REDNESS Verified 01/05/17 17:55 - Medications Medications: Current Medications Acetaminophen (Tylenol 325mg Tab) 650 mg PO Q4 PRN PRN Reason: T>101,pain 1-7,headache Al Hydrox/Mg Hydrox/Simethicone (Maalox Plus 30 Ml) 30 ml PO Q4 PRN PRN Reason: Dyspepsia Benztropine Mesylate (Cogentin) 1 mg PO BID [facility]O Last Admin: 01/11/17 08:34 Dose: 1 mg Diphenhydramine HCl (Benadryl) 50 mg PO Q6 PRN PRN Reason: Extrapyramidal Symptoms Diphenhydramine HCl (Benadryl) 50 mg IM Q6 PRN PRN Reason: Extrapyramidal S/S Unable PO Haloperidol (Haldol) 5 mg PO Q4 PRN PRN Reason: Agitation Haloperidol (Haldol) 10 mg PO BID [facility] Last Admin: 01/11/17 08:34 Dose: 10 mg Haloperidol Lactate (Haldol) 5 mg IM Q4 PRN PRN Reason: Agitation, Unable to Take PO Lorazepam (Ativan) 2 mg PO Q4 PRN PRN Reason: Anxiety/Agitation Last Admin: 01/05/17 22:36 Dose: 2 mg Lorazepam (Ativan) 2 mg IM Q4 PRN PRN Reason: Anxiety/Agitation,Unable PO Magnesium Hydroxide (Milk Of Magnesia) 30 ml PO HS PRN PRN Reason: Constipation Sertraline HCl (Zoloft) 50 mg PO DAILY [facility] Last Admin: 01/11/17 08:34 Dose: 50 mg Trazodone HCl (Desyrel) 50 mg PO HS [facility] Last Admin: 01/10/17 21:30 Dose: 50 mg Valproate Sodium (Depakene Oral Soln) 1,000 mg PO HS [facility] Last Admin: 01/10/17 21:29 Dose: 1,000 mg Valproate Sodium (Depakene Oral Soln) 750 mg PO DAILY [facility] Last Admin: 01/11/17 08:33 Dose: 750 mg Physical Exam - Constitutional Appears: Well, Non-toxic, No Acute Distress - Extremities Exam Additional comments: Vasc: DP/PT 2/4 B/l, TG wnl, CFT < 3 sec to all digits Neuro: grossly intact derm: no edema, no erythema, hyperkeratotic lesions noted to left foot dorsal 5th digit, right foot medial hallux IPJ, no open lesions, diffuse xerosis plantarly b/l, no clinical signs of infection ortho: mild pain on palpation to hyperkeratotic lesions Results - Vital Signs Recent Vital Signs: Last Vital Signs Temp 98.1 F 01/10/17 16:25 Pulse 63 01/10/17 16:25 Resp 20 01/10/17 16:25 BP 120/60 01/10/17 16:25 Pulse Ox 99 01/10/17 09:00 - Labs Result Diagrams: 01/05/17 19:42 01/05/17 19:42 Assessment & Plan - Assessment and Plan (Free Text) Assessment: 26 y/o male seen at bedside in [facility] for painful hyperkeratotic lesions on feet bilaterally Plan: patient evaluated and chart reviewed discussed in detail with attending Dr. Brock labs and vitals reviewed Rx lac hydrin to be applied daily to feet will debride calluses tomorrow podiatry will continue to monitor while patient remains in house
[2017-01-11] MEDS: Ammonium Lactate 12% Cream (140 g) TOP SCH (13:05)
[2017-01-12] MEDS: Ammonium Lactate 12% Cream (140 g) TOP SCH (08:44)
[2017-01-12] MEDS: Valproic Acid 250 mg/5 ml UD Cup PO SCH ×2 (08:44→21:21)
--- NOTE | 2017-01-12 09:07 | PCM.PYCHPN ---
Psychiatric Progress Note - Psychiatric Progress Note Patient seen today, length of contact: Patient evaluated, chart reviewed, case discussed with team Patient Chief Complaint: "I'm feeling down" Problems Identified/Issues Discussed: Patient reports that he is worried about his past suicidal ideations. He reports that he continues to have intermittent suicidal ideation, without plan or intent, but states that these thoughts cause him significant distress. He denies acute psychotic symptoms. He has been eating and sleeping well. Diagnostic Results: 01/09/17- VPA 48.3 Medication Change: No Medical Record Reviewed: Yes Mental Status Examination - Cognitive Function Orientation: Person, Place, Situation, Time Memory: Intact Attention: WNL Concentration: WNL Association: WNL Fund of Knowledge: [facility] Decription of patient's judgement and insights: Fair I/J - Mood Mood: Depressed - Affect Affect: Constricted - Speech Speech: Soft - Formal Thought Process Formal Thought Process: Paranoia, Loosening of associations Psychotic Thoughts and Behaviors: Denies acute psychosis, but seems to be paranoid and guarded at times - Suicidal Ideation Suicidal Ideation: No - Homicidal Ideation Homicidal Ideation: No Goal/Treatment Plan - Goal/Treatment Plan Need for Continued Stay: Remain at risks for inpatient hospitalization, Discharge may exacerbated symptoms, Severe functional impairment Progress Toward Problem(s) and Goals/Treatment Plan: 26 yo male w/ h/o schizoaffective disorder, admitted for acute decompensation in the context of non-compliance, continues to be depressed and seems to be paranoid, needs continued admission for treatment and stabilization. -Continue current medications -Recheck VPA level -Individual and group therapy Estimated Date of D/C: 01/17/17
--- NOTE | 2017-01-12 11:22 | CP.PCM.PN ---
Subjective - Date & Time of Evaluation Date of Evaluation: 01/12/17 Time of Evaluation: 11:19 - Subjective Subjective: 26 y/o male seen at bedside in [facility] with pmhx of suicidal ideations, complaining of pain in his feet. Patient states that he has calluses that hurt when he walks and wears shoe gear. Patient denies any other complaints at this time. He denies n/f/v/d/sob. Objective - Vital Signs/Intake and Output Vital Signs (last 24 hours): Temp Pulse Resp BP Pulse Ox 97.3 F L 55 L 16 121/69 99 01/12/17 09:00 01/12/17 09:00 01/12/17 09:00 01/12/17 09:00 01/11/17 09:00 - Medications Medications: Current Medications Acetaminophen (Tylenol 325mg Tab) 650 mg PO Q4 PRN PRN Reason: T>101,pain 1-7,headache Al Hydrox/Mg Hydrox/Simethicone (Maalox Plus 30 Ml) 30 ml PO Q4 PRN PRN Reason: Dyspepsia Benztropine Mesylate (Cogentin) 1 mg PO BID [facility] Last Admin: 01/12/17 08:44 Dose: 1 mg Diphenhydramine HCl (Benadryl) 50 mg PO Q6 PRN PRN Reason: Extrapyramidal Symptoms Diphenhydramine HCl (Benadryl) 50 mg IM Q6 PRN PRN Reason: Extrapyramidal S/S Unable PO Haloperidol (Haldol) 5 mg PO Q4 PRN PRN Reason: Agitation Haloperidol (Haldol) 10 mg PO BID [facility] Last Admin: 01/12/17 09:12 Dose: 10 mg Haloperidol Lactate (Haldol) 5 mg IM Q4 PRN PRN Reason: Agitation, Unable to Take PO Lactic Acid (Lac-Hydrin 12% Cream (140 G)) 0 ea TOP DAILY [facility] Last Admin: 01/12/17 08:44 Dose: 1 u Lorazepam (Ativan) 2 mg PO Q4 PRN PRN Reason: Anxiety/Agitation Last Admin: 01/05/17 22:36 Dose: 2 mg Lorazepam (Ativan) 2 mg IM Q4 PRN PRN Reason: Anxiety/Agitation,Unable PO Magnesium Hydroxide (Milk Of Magnesia) 30 ml PO HS PRN PRN Reason: Constipation Sertraline HCl (Zoloft) 50 mg PO DAILY [facility] Last Admin: 01/12/17 08:44 Dose: 50 mg Trazodone HCl (Desyrel) 50 mg PO HS [facility] Last Admin: 01/11/17 21:11 Dose: 50 mg Valproate Sodium (Depakene Oral Soln) 1,000 mg PO HS [facility] Last Admin: 01/11/17 21:11 Dose: 1,000 mg Valproate Sodium (Depakene Oral Soln) 750 mg PO DAILY [facility] Last Admin: 01/12/17 08:44 Dose: 750 mg - Constitutional Appears: Well, Non-toxic, No Acute Distress - Extremities Exam Additional comments: Vasc: DP/PT 2/4 B/l, TG wnl, CFT < 3 sec to all digits Neuro: grossly intact derm: no edema, no erythema, hyperkeratotic lesions noted to left foot dorsal 5th digit, medial hallux IPJ b/l, no open lesions, diffuse xerosis plantarly b/l , no clinical signs of infection ortho: mild pain on palpation to hyperkeratotic lesions - Neurological Exam Neurological Exam: Alert, Awake, Oriented x3 Assessment and Plan - Assessment and Plan (Free Text) Assessment: 26 y/o male seen at bedside in [facility] for painful hyperkeratotic lesions on feet bilaterally Plan: patient evaluated and chart reviewed discussed in detail with attending Dr. Brock labs and vitals reviewed instructed patient to continue applying lac hydrin to feet daily for dry skin hyperkeratotic lesions of left dorsal 5th digit and left hallux excisionally debrided using a sterile #15 blade to level of healthy dermis patient instructed to follow up in podiatry clinic as outpatient for continued foot care thank you for the consultation. please reconsult as necessary
[2017-01-13] MEDS: Valproic Acid 250 mg/5 ml UD Cup PO SCH ×2 (10:13→21:22)
[2017-01-13] MEDS: Ammonium Lactate 12% Cream (140 g) TOP SCH (10:18)
[2017-01-14] MEDS: Valproic Acid 250 mg/5 ml UD Cup PO SCH ×2 (09:00→21:23)
[2017-01-14] MEDS: Ammonium Lactate 12% Cream (140 g) TOP SCH (09:00)
--- NOTE | 2017-01-14 12:12 | PCM.PYCHPN ---
Psychiatric Progress Note - Psychiatric Progress Note Patient seen today, length of contact: Patient evaluated, chart reviewed, case discussed with team Patient Chief Complaint: "I'm okay" Problems Identified/Issues Discussed: No significant events overnight. Patient continues to report feeling depressed , but it seems that at this point, it is unclear if the patient is trying to prolong his hospitalization due to secondary gain (homelessness). No current suicidal ideation/plan/intent. Patient has been in good behavioral control and does not seem to be internally preoccupied. He denies acute psychotic symptoms. He has been eating and sleeping well. He has also been requesting more and more ativan from the nurses, likely drug seeking behaviors. Diagnostic Results: 01/09/17- VPA 48.3 01/12/17- VPA 76.1 Medication Change: Yes (Lower PRN Ativan, due to drug seeking behaviors) Medical Record Reviewed: Yes Mental Status Examination - Cognitive Function Orientation: Person, Place, Situation, Time Memory: Intact Attention: WNL Concentration: WNL Association: WNL Fund of Knowledge: [facility] Decription of patient's judgement and insights: Fair I/J - Mood Mood: Depressed - Affect Affect: Constricted - Speech Speech: Soft - Formal Thought Process Formal Thought Process: No Impairment Psychotic Thoughts and Behaviors: Denies AH/VH - Suicidal Ideation Suicidal Ideation: No - Homicidal Ideation Homicidal Ideation: No Goal/Treatment Plan - Goal/Treatment Plan Need for Continued Stay: Remain at risks for inpatient hospitalization Progress Toward Problem(s) and Goals/Treatment Plan: 26 yo male w/ h/o schizoaffective disorder, admitted for acute decompensation in the context of non-compliance, now improving clinically. Patient continues to report depressive symptoms, but it is unclear if the patient is trying to avoid being discharged for secondary gain. Will continue to monitor for safety , but patient has not been expressing suicidal ideation. -Continue current medications -Individual and group therapy Estimated Date of D/C: 01/16/17
[2017-01-15] MEDS: Valproic Acid 250 mg/5 ml UD Cup PO SCH ×2 (08:37→22:04)
[2017-01-15] MEDS: Ammonium Lactate 12% Cream (140 g) TOP SCH (08:40)
--- NOTE | 2017-01-15 09:45 | PCM.PYCHPN ---
Psychiatric Progress Note - Psychiatric Progress Note Patient seen today, length of contact: Patient evaluated, chart reviewed, case discussed with team Patient Chief Complaint: "I'm okay" Problems Identified/Issues Discussed: No significant events overnight. Patients mood has improved since admission. He denies acute psychotic symptoms. No paranoia. NO SI/HI. He has been eating and sleeping well. Patient counseled on the importance of outpatient follow-up and treatment. Diagnostic Results: 01/09/17- VPA 48.3 01/12/17- VPA 76.1 Medication Change: No Medical Record Reviewed: Yes Mental Status Examination - Cognitive Function Orientation: Person, Place, Situation, Time Memory: Intact Attention: WNL Concentration: WNL Association: WNL Fund of Knowledge: [facility] Decription of patient's judgement and insights: Fair I/J - Mood Mood: Neutral - Affect Affect: Broad - Speech Speech: Soft - Formal Thought Process Formal Thought Process: No Impairment Psychotic Thoughts and Behaviors: NO AH/VH/paranoia - Suicidal Ideation Suicidal Ideation: No - Homicidal Ideation Homicidal Ideation: No Goal/Treatment Plan - Goal/Treatment Plan Need for Continued Stay: Remain at risks for inpatient hospitalization Progress Toward Problem(s) and Goals/Treatment Plan: 26 yo male w/ h/o schizoaffective disorder, admitted for acute decompensation in the context of non-compliance, now improving clinically. NO psychosis/SI/HI/ paranoia. -Continue current medications -Individual and group therapy -Discharge tomorrow Estimated Date of D/C: 01/16/17
[2017-01-16] MEDS: Valproic Acid 250 mg/5 ml UD Cup PO SCH (08:44)
[2017-01-16] MEDS: Ammonium Lactate 12% Cream (140 g) TOP SCH (08:44)
[2017-01-16 09:09] VITALS: BP 117/67; PULSE 61; RESP 18; TEMP 97.2
--- NOTE | 2017-01-16 11:07 | PCM.PYCHDC ---
Mental Status Examination - Mental Status Examination Orientation: Person, Place, Situation, Time Memory: Intact Mood: Neutral Affect: Broad Speech: Appropriate Attention: WNL Concentration: WNL Association: WNL Fund of Knowledge: WNL Formal Thought Process: No Impairment Description of patient's judgement and insight: Fair I/J Psychotic Thoughts and Behaviors: NO AH/VH/paranoia Suicidal Ideation: No Current Homicidal Ideation?: No Discharge Summary - Discharge Note Reason for Hospitalization: As per initial HPI: pt returned to ER shortly after his discharge. states he did not get his medications. states he is depressed. states he is having suicidal thoughts. he hears voices. he is homeless. he is stating he started to feel bad almost immediately after leaving the hospital. he states he can stay safe on the unit. he does not want to take depot from of haldol. Consultations:: List each consultation separately and include: 1. Reason for request. 2. Findings. 3. Follow-up Consultations: Medicine consult Summary of Hospital Course include:: 1. Description of specific treatment plan utilized for patients during their course of treatmen. 2. Summarize the time- course for resolution of acute symptoms and/or regressed behaviors. 3. Describe issues identified and worked on during hospitalization. 4. Describe medication utilized. 5. Describe medical problems identified and treated. 6. Reassessment of suicide risk Summary of Hospital Course: Patient admitted to the psychiatry unit. He was treated with individual and group therapy. He was stabilized on Depakote 750 mg PO Daily/ 1000 mg PO HS, Haldol 10 mg PO BID, Zoloft 50 PO Daily, Benztropine 1 mg PO BID, Trazodone 50 mg PO HS. The patient no longer reports psychotic symptoms. As he has improved clinically, it has become more evident that the patient is seeking continued hospitalization for secondary gain. When approached about discharge, he gives various reasons that he does not want to leave including "it's weird to leave on a " or "It's gloomy outside and that makes me feel down." He states that he wants to stay longer because his roommate is staying until Friday. Patient also lied and stated that the manager social media never discussed anything with him for the 2 weeks that he has been admitted, which is untrue as the securities underwriter has met with him and the manager social media together to discuss disposition. At this time patient is psychiatrically stable for discharge. He was counseled on the importance of follow-up treatment and care. - Final Diagnosis (DSM 5) Condition upon Discharge: STABLE DSM 5: Schizoaffective disorder, bipolar type Disposition: HOME/ ROUTINE Follow-up Treatment Plan: 26 yo male w/ h/o schizoaffective disorder, admitted for acute decompensation in the context of non-compliance, now improved, but seeking to stay in the hospital longer due to secondary gain of housing. Patient is psychiatrically stable for discharge and will be discharged with housing and psychiatric follow- up referrals. -Continue current medications -Discharge today. Prescriptions/Medication Reconciliation: Benztropine [Cogentin] 1 mg PO BID #28 tab Divalproex [Depakote] 750 mg PO DAILY #42 tcp Divalproex [Depakote DR(*BID*)] 1,000 mg PO HS #28 tcp traZODone [Desyrel] 50 mg PO HS #14 tab Haloperidol [Haldol] 10 mg PO BID #28 tab Sertraline [Zoloft] 50 mg PO DAILY #14 tab - Smoking Cessation Smoking Cessation Medication prescribed: No Reason for not providing: Not indicated - Antipsychotic Medications Pt discharged on 2 or more routine antipsychotic medications: No
[2017-01-16] MEDS ORDERED: Divalproex 500 mg DR(BID formulation) PO SCH (22:00)
[2017-01-17] MEDS ORDERED: Divalproex 250 mg DR(BID formulation) PO SCH ×2 (09:00)
== END 2017-01-16 13:49 | disposition home or self-care (01) | DRG 430 ==
LOC: H.ER 17:37 → H.ERHOLD 20:26 → H.PSYCH 22:03
PROVIDERS: ADMIT Psychiatry & Neurology Psychiatry; ATTEND Psychiatry & Neurology Psychiatry
PROC: GZ51ZZZ Individual Psychotherapy, Behavioral (ICD-10-PCS; 2017-01-06)
PROC: GZHZZZZ Group Psychotherapy (ICD-10-PCS; principal; 2017-01-08)
PROC: 0HDMXZZ Extraction of Right Foot Skin, External Approach (ICD-10-PCS; 2017-01-12)
PROC: 0HDNXZZ Extraction of Left Foot Skin, External Approach (ICD-10-PCS; 2017-01-12)
DX: F25.0 Schizoaffective disorder, bipolar type (principal); R45.851 Suicidal ideations; R45.850 Homicidal ideations; I10 Essential (primary) hypertension; E78.00 Pure hypercholesterolemia, unspecified; G47.30 Sleep apnea, unspecified; Z59.0 Homelessness; J45.909 Unspecified asthma, uncomplicated; Z87.891 Personal history of nicotine dependence; G43.909 Migraine, unspecified, not intractable, without status migrainosus; Z76.5 Malingerer [conscious simulation]; F22 Delusional disorders; L84 Corns and callosities

== ENCOUNTER 2017-01-22 10:25 | Inpatient (IN) | payer MEDICAID, OTHER ==
[2017-01-22 10:33] VITALS: BMI 30.4
[2017-01-22] MEDS ORDERED: Sodium Chloride 0.9% 1,000 ML IV STA (10:43)
--- NOTE | 2017-01-22 10:46 | ED PDOC ---
HPI: Psych/Substance Abuse Time Seen by Provider: 01/22/17 10:44 Chief Complaint (Nursing): Psychiatric Evaluation Chief Complaint (Provider): suicidal attempt History Per: Patient (26 y/o male h/o Schizophrenia here with ingestion of medication at 9:00am this morning in attempt of suicide. Patient was discharged from [facility] 01/16 and written 2 week supply of trazadone 50 mg qd/ zoloft 50mg qd/ haldol 10mg bid/depakote 750 bid/cogentin 1 mg bid. Patient states he took "all his medications" at 9am. Unclear how many tablets. ) Past Medical History Reviewed: Historical Data, Nursing Documentation, Vital Signs Vital Signs: Last Vital Signs Temp 98.0 F 01/22/17 10:32 Pulse 93 H 01/22/17 10:32 Resp 16 01/22/17 10:32 BP 138/89 01/22/17 10:32 Pulse Ox 98 01/22/17 10:32 - Medical History PMH: Anxiety, Asthma, Bipolar Disorder, Depression, Diabetes (per pt), Fractures (hx. right wrist), HTN, Hypercholesterolemia, Migraine, Schizophrenia , Sleep Apnea Denies: Hepatitis, HIV, Chronic Kidney Disease, Seizures, Sexually Transmitted Disease - Family History Family History: States: Unknown Family Hx - Social History Current smoker - smoking cessation education provided: Yes Alcohol: Occasional - Immunization History Hx Tetanus Toxoid Vaccination: No Hx Influenza Vaccination: No Hx Pneumococcal Vaccination: No - Home Medications Home Medications: Ambulatory Orders Medication Instructions Recorded Benztropine [Cogentin] 1 mg PO BID #28 tab 01/16/17 Divalproex [Depakote DR(*BID*)] 1,000 mg PO HS #28 tcp 01/16/17 Divalproex [Depakote] 750 mg PO DAILY #42 tcp 01/16/17 Haloperidol [Haldol] 10 mg PO BID #28 tab 01/16/17 Sertraline [Zoloft] 50 mg PO DAILY #14 tab 01/16/17 traZODone [Desyrel] 50 mg PO HS #14 tab 01/16/17 - Allergies Allergies/Adverse Reactions: Allergies Allergy/AdvReac Type Severity Reaction Status Date / Time pollen extracts Allergy REDNESS Verified 01/05/17 17:55 Review of Systems ROS Statement: Except As Marked, All Systems Reviewed And Found Negative Gastrointestinal: Positive for: Vomiting Psych: Positive for: Suicidal ideation Physical Exam - Reviewed Nursing Documentation Reviewed: Yes Vital Signs Reviewed: Yes - Physical Exam Appears: Positive for: Well, Non-toxic, No Acute Distress Head Exam: Positive for: ATRAUMATIC, NORMAL INSPECTION, NORMOCEPHALIC Skin: Positive for: Normal Color, Warm, DRY Eye Exam: Positive for: EOMI, Normal appearance, PERRL ENT: Positive for: Normal ENT Inspection Neck: Positive for: Normal, Painless ROM Cardiovascular/Chest: Positive for: Regular Rate, Rhythm Respiratory: Positive for: CNT, Normal Breath Sounds Gastrointestinal/Abdominal: Positive for: Normal Exam, Bowel Sounds, Soft Back: Positive for: Normal Inspection Extremity: Positive for: Normal ROM Neurologic/Psych: Positive for: Alert, Oriented - Laboratory Results Result Diagrams: 01/22/17 11:00 01/22/17 11:00 - ECG ECG Rhythm: Positive for: Sinus Rhythm (nsr 89bpm; no ectopy; no acute changes; QT/QTc) O2 Sat by Pulse Oximetry: 98 - Progress ED Course And Treament: Placed in 1:1 for observation. d/w Dr. Munoz. Will obtain EKG/tyelnol/asa/ discuss with poison control. d/w Poison control will repeat EKG/Depakote in 4 hours. Supportive care and benzodiazepine if needed for agitation. EKG: NSR 82 BPM NO ECTOPY; NO ACUTE CHANGES QT/QTC 382/446 REPEAT VALPROIC ACID 155 D/W POISON CONTROL REPEAT LEVELS. PATIENT RE-EVALUATED AT THIS TIME. O2 O5-96%. PATIENT NOT RESPONDING TO VERBAL STIMULI; HAS GRUNTING WITH PAINFUL STIMULI; PATIENT HAS GAG REFLEX NOTED ON EXAM. PUPILS DILATED BUT ABLE TO CONSTRICT. SEEN AT THIS TIME WITH DR. MUNOZ WELL. PATIENT PLACED ON 2 LITERS NASAL CANNULA ABG DONE. PH 7.33; CO2 51; P02 183 DR. MUNOZ HAS D/W ICU TRUCK GUARD DR. ABBOTT. SEEN BY DR. ABBOTT IN ED. PATIENT ALERT AND VERBALLY RESPONSIVE AT THIS TIME. DOES NOT FEEL HE NEEDS INTUBATION OR ICU ADMISSION D/W DR. SERRATO. WILL START D51/2 NS 125 ML PER HOUR AND PSYCH CONSULT INPATIENT. ED OBSERVATION Date of observation admission: 01/22/17 Time of observation admission: 12:46 - Observation admission statement Patient is being placed in observation because:: DRUG OVERDOSE - Goals of Observation Goals of observation are:: PATIENT TO BE OBSERVED IN ED ON TELEMETRY. WILL REPEAT EKG AND VALPROID ACID 4 HOURS AFTER FIRST Disposition - Clinical Impression Clinical Impression: Suicidal overdose - Patient ED Disposition Is Patient to be Admitted: Yes - Disposition Disposition Time: 16:55 Condition: FAIR - Pt Status Changed To: Hospital Disposition Of: Inpatient - Admit Certification Admit to Inpatient:: After my assessment, the patient will require hospitalization for at least two midnights. This is because of the severity of symptoms shown, intensity of services needed, and/or the medical risk in this patient being treated as an outpatient.
[2017-01-22 11:21] LABS: BASO % 0.7 % (0.0-2.0); EOS # 0.1 K/uL (0.0-0.7); EOS % 0.9 % (0.0-4.0); HEMATOCRIT 39.2 % (35.0-51.0); LYMPH # 1.6 K/uL (1.0-4.3); LYMPH % 22.5 % (20.0-40.0); MEAN CELL VOLUME 82.1 fl (80.0-94.0); MEAN CORPUSCULAR HEMOGLOBIN 27.2 pg (27.0-31.0); MEAN CORPUSCULAR HGB CONC 33.1 g/dL (33.0-37.0); MEAN PLATELET VOLUME 10.5 fl (7.2-11.7); MONO # 0.6 K/uL (0.0-0.8); MONO % 8.8 % (0.0-10.0); NEUT # 4.7 K/uL (1.8-7.0); NEUT % 67.1 % (50.0-75.0); NRBC % 0.2 % (0.0-0.0); RED CELL DISTRIBUTION WIDTH 16.2 % (11.5-14.5)
[2017-01-22 11:38] LABS: ALB/GLOB RATIO 1.1 (1.0-2.1); ALCOHOL SERUM < 10 mg/dl (0-10); ALKALINE PHOSPHATASE 70 U/L (38-126); ALT/SGPT 29 U/L (21-72); AST/SGOT 24 U/L (17-59); BILIRUBIN,TOTAL 0.5 mg/dl (0.2-1.3); BLOOD UREA NITROGEN 8 mg/dl (9-20); CALCIUM 9.2 mg/dL (8.4-10.2); CARBON DIOXIDE 23 mmol/L (22-30); CHLORIDE 106 mmol/L (98-107); GFR AFRICAN-AMERICAN > 60; GLUCOSE,RANDOM 97 mg/dL (75-110); MAGNESIUM 1.7 MG/DL (1.6-2.3); POTASSIUM 3.6 MMOL/L (3.6-5.0); SODIUM 143 mmol/l (132-148); TOTAL PROTEIN 7.4 G/DL (6.3-8.2)
[2017-01-22 11:56] LABS: VALPROIC ACID 176.2 ug/mL (50.0-100.0)
--- NOTE | 2017-01-22 12:00 | RAD ---
HISTORY: routine COMPARISON: 12/23/2016 FINDINGS: LUNGS: No active pulmonary disease. PLEURA: No significant pleural effusion identified, no pneumothorax apparent. CARDIOVASCULAR: Normal. OSSEOUS STRUCTURES: No significant abnormalities. VISUALIZED UPPER ABDOMEN: Normal. OTHER FINDINGS: None. IMPRESSION: No active disease.
[2017-01-22 16:11] LABS: ABG ALLEN TEST YES; ARTERIAL BLOOD GAS O2 CAPACITY 15.5 mL/dL (16-24); ARTERIAL BLOOD GAS O2 CONTENT 15.7 ML/dL (15-23); ARTERIAL BLOOD GAS PH 7.33 (7.35-7.45); ARTERIAL BLOOD GAS PO2 183 mm/Hg (80-100); ARTERIAL BLOOD HGB O2 SAT 92.1 % (95.0-98.0); CARBOXYHEMOGLOBIN 6.7 % (0.5-1.5); HHB -0.9 % (0.0-5.0); METHEMOGLOBIN 2.1 % (0.0-3.0)
[2017-01-22] MEDS ORDERED: Dextrose 5%/0.45% NS 1,000 ML IV SCH (17:00)
--- NOTE | 2017-01-22 17:14 | CT ---
PROCEDURE: CT HEAD WITHOUT CONTRAST. HISTORY: AMS COMPARISON: 06/29/2016 TECHNIQUE: Axial computed tomography images were obtained through the head/brain without intravenous contrast. Radiation dose: Total exam DLP = 1979.14 mGy-cm. This CT exam was performed using one or more of the following dose reduction techniques: Automated exposure control, adjustment of the mA and/or kV according to patient size, and/or use of iterative reconstruction technique. FINDINGS: HEMORRHAGE: No intracranial hemorrhage. BRAIN: No mass effect or edema. No atrophy or chronic microvascular ischemic changes. VENTRICLES: Unremarkable. No hydrocephalus. CALVARIUM: Unremarkable. PARANASAL SINUSES: Mild chronic ethmoid and sphenoid sinusitis. MASTOID AIR CELLS: Unremarkable as visualized. No inflammatory changes. OTHER FINDINGS: None. IMPRESSION: No intracranial mass, hemorrhage or evidence of acute infarct. Mild chronic paranasal sinusitis.
--- NOTE | 2017-01-22 17:20 | CP.CCUPN ---
CCU Subjective - Physician Review Subjective (Free Text): DOG HANDLER OR TRAINER PROGRESS NOTE Patient examined, interim events reviewed, discussed with ER MD: 26M , PMH : HYN, Hyperlipidemia, Asthma, Multi-Psych Disorder admitted after suicide attempt with multiple medication ingestion consisting of Zoloft, Haldol , Cogentin, valproate, and Trazadone from 2 week supply bottles which were all noted to be empty. This incident occurred in the doctors office and patient subsequently vomited x1, no description noted regarding description of vomitus nor note on any pill / tablet fragments seen. In the ER, he was initially combative, and now approx. 6 hours later after presentation, he is somnolent, but arousable to verbal and tactile stimuli. He is moving purposefully in trying to cover himself with the blanket, no focal motor deficits noted, and responds with single word answers. No overt distress noted nor recurrent psychomotor agitation noted upon repeated stimulation. HR 75 in NSRT, SP2 128/74 , SPO2 99% on nasal cannula oxygen. He has note urinated yet, nor any Steiner has been placed. ABG showed mild hypercarbia. Allergies: pollen extracts Home Meds: same as above ROS: as above, unobtainable in patients present somnolent state, no other pertinent negs or positives on 12 system review from other documentations. PMSFH: All nursing and physician documentation reviewed, + smoker, + ETOH use, + marijuana use No other distress noted: EXAM- HEENT: no icterus, pupils equal and reactive 3-4 mm bilat, no nystagmus NECK: no visible JVD, supple, carotids equal upstroke bilat/no bruits CHEST: decreased BS bases, no wheezes audible HEART: regular, distant, S1S2, no murmur audible, no rubs. ABD: soft, no distention, no focal tenderness, no HSM. BS hypoactive, no abdominal bruits or other masses EXT: no leg edema, no peripheral/ digital cyanosis, no calf tenderness or palpable cords, distal pulses intact and symmetrical NEURO: No focal motor deficits; CGS= 12. SKIN: no rashes LABS: 7.33/51/183 WBC= 7.0 HGB= 13.0 PLTs= 141K Na= 143 K= 3.6 HCO3= 23 BUN/Cr= 8/0.7 BS= 97 EKG: sinus 90/min, normal CXR: essentially clear without consolidation, no cardiomegaly. CT Brain; no acute stroke or bleed. ASSESSMENT: 1. Acute multiple medication ingestion with toxicity in a suicide attempt 2. h/o Asthma. No clinical exacerbation 3. h/o Multi-Psych disorder: Depression / Anxiety; BiPolar state, Schizophrenia PLAN: 1. Check repeat ABG over the next hour. 2. Follow valproate levels, watch for hyperammonia if he becomes more lethargic, and may need lactulose. 3. Check urine tox screen when feasible. 4. 1:1 supervision. 5. Telemetry bed monitoring and Neurochecks for now. If he needs MV support for airway protection if he becomes more lethargic, will move to ICU.
[2017-01-22 18:09] LABS: RBC URINE 3 /hpf (0-3); URINE BACTERIA RARE (<OCC); URINE BILIRUBIN NEGATIVE (NEGATIVE); URINE BLOOD MODERATE (NEGATIVE); URINE COLOR YELLOW (YELLOW); URINE GLUCOSE (UA) NEG (Normal); URINE KETONE NEGATIVE (NEGATIVE); URINE LEUKOCYTE ESTERASE NEG Leu/uL (Negative); URINE PROTEIN NEGATIVE (NEGATIVE); URINE UROBILINOGEN 0.2-1.0 mg/dL (0.2-1.0); WBC URINE < 1 /hpf (0-5)
[2017-01-23] MEDS: Dextrose 5%/0.45% NS 1,000 ML IV SCH ×2 (04:16→12:00)
[2017-01-23 07:05] LABS: HEMATOCRIT 38.1 % (35.0-51.0); MEAN CELL VOLUME 83.1 fl (80.0-94.0); MEAN CORPUSCULAR HEMOGLOBIN 26.9 pg (27.0-31.0); MEAN CORPUSCULAR HGB CONC 32.4 g/dL (33.0-37.0); RED CELL DISTRIBUTION WIDTH 16.2 % (11.5-14.5)
[2017-01-23 07:23] LABS: ALKALINE PHOSPHATASE 53 U/L (38-126); ALT/SGPT 25 U/L (21-72); AST/SGOT 16 U/L (17-59); BILIRUBIN,TOTAL 0.5 mg/dl (0.2-1.3); BLOOD UREA NITROGEN 7 mg/dl (9-20); CALCIUM 8.4 mg/dL (8.4-10.2); CARBON DIOXIDE 25 mmol/L (22-30); CHLORIDE 109 mmol/L (98-107); GFR AFRICAN-AMERICAN > 60; GLUCOSE,RANDOM 72 mg/dL (75-110); SODIUM 144 mmol/l (132-148); TOTAL PROTEIN 5.8 G/DL (6.3-8.2)
--- NOTE | 2017-01-23 08:24 | CARD ---
APPROVED REPORT EKG Measurement Heart [id number] <Conclusion> Normal sinus rhythm LVH with T wave abnormality Abnormal ECG
--- NOTE | 2017-01-23 08:27 | CARD ---
APPROVED REPORT EKG Measurement Heart [id number] <Conclusion> Normal sinus rhythm Normal ECG
--- NOTE | 2017-01-23 11:21 | CP.PCM.HP ---
History of Present Illness - History of Present Illness History of Present Illness: This is a 26 y/o male admitted for multidrug overdose last might. he has a hx multiple Psych dx and on multiple Psych meds. including Cogentin Zoloft valproate. Present on Admission - Present on Admission Any Indicators Present on Admission: No History of DVT/PE: No History of Uncontrolled Diabetes: No Urinary Catheter: No Decubitus Ulcer Present: No Past Patient History - Infectious Disease Hx of Infectious Diseases: None - Tetanus Immunizations Tetanus Immunization: Unknown - Past Medical History & Family History Past Medical History?: Yes - Past Social History Smoking Status: Current Some Days Smoker - CARDIAC Hx Hypercholesterolemia: Yes Hx Hypertension: Yes - PULMONARY Hx Asthma: Yes Hx Sleep Apnea: Yes - NEUROLOGICAL Hx Migraine: Yes Hx Seizures: No - HEENT Hx HEENT Problems: No - RENAL Hx Chronic Kidney Disease: No - ENDOCRINE/METABOLIC Hx Endocrine Disorders: No - HEMATOLOGICAL/ONCOLOGICAL Hx AIDS: No Hx Human Immunodeficiency Virus (HIV): No - INTEGUMENTARY Hx Dermatological Problems: No - MUSCULOSKELETAL/RHEUMATOLOGICAL Hx Falls: No - GASTROINTESTINAL Hx Gastrointestinal Disorders: No - GENITOURINARY/GYNECOLOGICAL Hx Sexually Transmitted Disorders: No - PSYCHIATRIC Hx Substance Use: No - SURGICAL HISTORY Hx Surgeries: No - ANESTHESIA Hx Anesthesia: No Hx Anesthesia Reactions: No Hx Malignant Hyperthermia: No Meds Allergies/Adverse Reactions: Allergies Allergy/AdvReac Type Severity Reaction Status Date / Time pollen extracts Allergy REDNESS Verified 01/05/17 17:55 Physical Exam - Constitutional Appears: Confused - Eye Exam Eye Exam: Normal appearance - ENT Exam ENT Exam: Mucous Membranes Moist - Cardiovascular Exam Cardiovascular Exam: REGULAR RHYTHM - GI/Abdominal Exam GI & Abdominal Exam: Normal Bowel Sounds - Neurological Exam Neurological exam: Altered - Psychiatric Exam Additional comments: sleepy most of the time Results - Vital Signs Recent Vital Signs: Last Vital Signs Temp 98.7 F 01/23/17 08:17 Pulse 80 01/23/17 08:17 Resp 18 01/23/17 08:17 BP 117/70 01/23/17 08:17 Pulse Ox 95 01/23/17 08:17 - Labs Result Diagrams: 01/23/17 05:20 01/23/17 05:20 Labs: Laboratory Results - last 24 hr 01/22/17 01/22/17 01/23/17 17:10 18:00 05:20 WBC 5.0 RBC 4.59 Hgb 12.4 Hct 38.1 MCV 83.1 MCH 26.9 L MCHC 32.4 L RDW 16.2 H Plt Count 136 Sodium Potassium Chloride Carbon Dioxide Anion Gap BUN Creatinine Est GFR ( Amer) Est GFR (Non-Af Amer) Random Glucose Calcium Total Bilirubin AST ALT Alkaline Phosphatase Total Protein Albumin Globulin Albumin/Globulin Ratio Urine Color Yellow Urine Clarity Clear Urine pH 6.0 Ur Specific [place] 1.009 Urine Protein Negative Urine Glucose (UA) Neg Urine Ketones Negative Urine Blood Moderate Urine Nitrate Negative Urine Bilirubin Negative Urine Urobilinogen 0.2-1.0 Ur Leukocyte Esterase Neg Urine RBC (Auto) 3 Urine Microscopic WBC < 1 Urine Bacteria Rare Urine Opiates Screen Negative Urine Methadone Screen Negative Ur Barbiturates Screen Negative Valproic Acid Ur Phencyclidine Scrn Negative Ur Amphetamines Screen Negative U Benzodiazepines Scrn Negative U Oth Cocaine Metabols Negative U Cannabinoids Screen Positive H 01/23/17 01/23/17 05:20 05:20 WBC RBC Hgb Hct MCV MCH MCHC RDW Plt Count Sodium 144 Potassium 4.0 Chloride 109 H Carbon Dioxide 25 Anion Gap 14 BUN 7 L Creatinine 0.7 L Est GFR ( Amer) > 60 Est GFR (Non-Af Amer) > 60 Random Glucose 72 L Calcium 8.4 Total Bilirubin 0.5 AST 16 L D ALT 25 Alkaline Phosphatase 53 Total Protein 5.8 L Albumin 2.9 L D Globulin 2.9 Albumin/Globulin Ratio 1.0 Urine Color Urine Clarity Urine pH Ur Specific [place] Urine Protein Urine Glucose (UA) Urine Ketones Urine Blood Urine Nitrate Urine Bilirubin Urine Urobilinogen Ur Leukocyte Esterase Urine RBC (Auto) Urine Microscopic WBC Urine Bacteria Urine Opiates Screen Urine Methadone Screen Ur Barbiturates Screen Valproic Acid 72.8 Ur Phencyclidine Scrn Ur Amphetamines Screen U Benzodiazepines Scrn U Oth Cocaine Metabols U Cannabinoids Screen Assessment & Plan (1) Suicidal overdose Status: Acute (2) Bipolar 1 disorder Status: Acute (3) Moderate major depression, single episode Status: Acute - Assessment and Plan (Free Text) Plan: cocn tmeds hydrate monitor lytes and liver enzymes medically stable for inpatient Psych. follow up with Psych
--- NOTE | 2017-01-23 11:22 | CP.PCM.PN ---
Subjective - Date & Time of Evaluation Date of Evaluation: 01/23/17 Time of Evaluation: 11:22 - Subjective Subjective: medically stable for Psych inpatient hospitalization. Objective - Vital Signs/Intake and Output Vital Signs (last 24 hours): Temp Pulse Resp BP Pulse Ox 98.7 F 80 18 117/70 95 01/23/17 08:17 01/23/17 08:17 01/23/17 08:17 01/23/17 08:17 01/23/17 08:17 - Medications Medications: Current Medications Dextrose/Sodium Chloride (Dextrose 5%/0.45% Ns 1000 Ml) 1,000 mls @ 80 mls/hr IV .[id number] NETO Last Admin: 01/23/17 04:16 Dose: 80 mls/hr Pantoprazole Sodium (Protonix Inj) 40 mg IVP DAILY NETO - Labs Labs: 01/23/17 05:20 01/23/17 05:20
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
[2017-01-24] MEDS: Dextrose 5%/0.45% NS 1,000 ML IV SCH ×2 (01:00→17:55)
[2017-01-24 07:04] LABS: HEMATOCRIT 39.6 % (35.0-51.0); MEAN CELL VOLUME 82.7 fl (80.0-94.0); MEAN CORPUSCULAR HEMOGLOBIN 26.8 pg (27.0-31.0); MEAN CORPUSCULAR HGB CONC 32.3 g/dL (33.0-37.0); RED CELL DISTRIBUTION WIDTH 16.3 % (11.5-14.5); WHITE BLOOD COUNT 5.6 K/uL (4.8-10.8)
[2017-01-24 07:31] LABS: ALKALINE PHOSPHATASE 52 U/L (38-126); ALT/SGPT 25 U/L (21-72); AST/SGOT 17 U/L (17-59); BILIRUBIN,TOTAL 0.7 mg/dl (0.2-1.3); BLOOD UREA NITROGEN 9 mg/dl (9-20); CALCIUM 8.7 mg/dL (8.4-10.2); CARBON DIOXIDE 26 mmol/L (22-30); CHLORIDE 109 mmol/L (98-107); GFR AFRICAN-AMERICAN > 60; GLUCOSE,RANDOM 77 mg/dL (75-110); SODIUM 143 mmol/l (132-148); TOTAL PROTEIN 5.9 G/DL (6.3-8.2)
--- NOTE | 2017-01-24 08:36 | CARD ---
APPROVED REPORT EKG Measurement Heart [id number] <Conclusion> Normal sinus rhythm Nonspecific T wave abnormality Abnormal ECG
[2017-01-24 11:52] VITALS: RESP 18
--- NOTE | 2017-01-24 14:46 | CP.PCM.PCO ---
Physician Communication Note - Physician Communication Note Physician Communication Note: Mitra Murphy Addendum Addendum: 01/24/17 14:46 Patient is medically cleared [place] [facility] [place].
[2017-01-24 21:08] VITALS: BP 142/80; PULSE 78; TEMP 98.7; O2SAT 96
[2017-01-24 21:31] LABS: URINE BILIRUBIN NEGATIVE (NEGATIVE); URINE BLOOD NEGATIVE (NEGATIVE); URINE COLOR YELLOW (YELLOW); URINE GLUCOSE (UA) NEG (Normal); URINE KETONE NEGATIVE (NEGATIVE); URINE LEUKOCYTE ESTERASE NEG Leu/uL (Negative); URINE PROTEIN NEGATIVE (NEGATIVE); WBC URINE 1 /hpf (0-5)
--- NOTE | 2017-01-28 00:32 | CP.PCM.DIS ---
Provider - Provider Date of Admission: 01/22/17 16:54 Attending physician: Elio Smith MD Time Spent in preparation of Discharge (in minutes): 30 Diagnosis - Discharge Diagnosis (1) Suicidal overdose Status: Acute (2) Bipolar 1 disorder Status: Acute (3) Moderate major depression, single episode Status: Acute Hospital Course - Lab Results Lab Results: Most Recent Lab Values WBC 5.6 K/uL (4.8-10.8) 01/24/17 05:15 RBC 4.79 Mil/uL (4.40-5.90) 01/24/17 05:15 Hgb 12.8 g/dL (12.0-18.0) 01/24/17 05:15 Hct 39.6 % (35.0-51.0) 01/24/17 05:15 MCV 82.7 fl (80.0-94.0) 01/24/17 05:15 MCH 26.8 pg (27.0-31.0) L 01/24/17 05:15 MCHC 32.3 g/dL (33.0-37.0) L 01/24/17 05:15 RDW 16.3 % (11.5-14.5) H 01/24/17 05:15 Plt Count 151 K/uL (130-400) 01/24/17 05:15 MPV 10.5 fl (7.2-11.7) 01/22/17 11:00 Neut % (Auto) 67.1 % (50.0-75.0) 01/22/17 11:00 Lymph % (Auto) 22.5 % (20.0-40.0) 01/22/17 11:00 [place] % (Auto) 8.8 % (0.0-10.0) 01/22/17 11:00 Eos % (Auto) 0.9 % (0.0-4.0) 01/22/17 11:00 Baso % (Auto) 0.7 % (0.0-2.0) 01/22/17 11:00 Neut # 4.7 K/uL (1.8-7.0) 01/22/17 11:00 Lymph # 1.6 K/uL (1.0-4.3) 01/22/17 11:00 [place] # 0.6 K/uL (0.0-0.8) 01/22/17 11:00 Eos # 0.1 K/uL (0.0-0.7) 01/22/17 11:00 Baso # 0.0 K/uL (0.0-0.2) 01/22/17 11:00 pCO2 51 mm/Hg (35-45) H 01/22/17 16:05 pO2 183 mm/Hg (80-100) H 01/22/17 16:05 HCO3 25.0 mmol/L (21-28) 01/22/17 16:05 ABG pH 7.33 (7.35-7.45) L 01/22/17 16:05 ABG Total CO2 28.5 mmol/L (22-28) H 01/22/17 16:05 ABG O2 Saturation 101.0 % (95-98) H 01/22/17 16:05 ABG O2 Content 15.7 ML/dL (15-23) 01/22/17 16:05 ABG Base Excess 0.3 mmol/L (-2.0-3.0) 01/22/17 16:05 ABG Hemoglobin 11.8 g/dL (11.7-17.4) 01/22/17 16:05 ABG Carboxyhemoglobin 6.7 % (0.5-1.5) H 01/22/17 16:05 POC ABG HHb (Measured) -0.9 % (0.0-5.0) L 01/22/17 16:05 ABG Methemoglobin 2.1 % (0.0-3.0) 01/22/17 16:05 ABG O2 Capacity 15.5 mL/dL (16-24) L 01/22/17 16:05 [place] Test Yes 01/22/17 16:05 A-a O2 Difference -19.0 mm/Hg 01/22/17 16:05 Hgb O2 Saturation 92.1 % (95.0-98.0) L 01/22/17 16:05 FiO2 32.0 % 01/22/17 16:05 Sodium 143 mmol/l (132-148) 01/24/17 05:15 Potassium 4.0 MMOL/L (3.6-5.0) 01/24/17 05:15 Chloride 109 mmol/L (98-107) H 01/24/17 05:15 Carbon Dioxide 26 mmol/L (22-30) 01/24/17 05:15 Anion Gap 12 (10-20) 01/24/17 05:15 BUN 9 mg/dl (9-20) 01/24/17 05:15 Creatinine 0.8 mg/dL (0.8-1.5) 01/24/17 05:15 Est GFR ( Amer) > 60 01/24/17 05:15 Est GFR (Non-Af Amer) > 60 01/24/17 05:15 POC Glucose (mg/dL) 74 mg/dL (65-110) 01/22/17 16:04 Random Glucose 77 mg/dL (75-110) 01/24/17 05:15 Calcium 8.7 mg/dL (8.4-10.2) 01/24/17 05:15 Magnesium 1.7 MG/DL (1.6-2.3) 01/22/17 11:00 Total Bilirubin 0.7 mg/dl (0.2-1.3) 01/24/17 05:15 AST 17 U/L (17-59) 01/24/17 05:15 ALT 25 U/L (21-72) 01/24/17 05:15 Alkaline Phosphatase 52 U/L (38-126) 01/24/17 05:15 Troponin I < 0.0120 ng/mL (0.00-0.120) 01/22/17 11:00 Total Protein 5.9 G/DL (6.3-8.2) L 01/24/17 05:15 Albumin 3.0 g/dL (3.5-5.0) L 01/24/17 05:15 Globulin 2.9 gm/dL (2.2-3.9) 01/24/17 05:15 Albumin/Globulin Ratio 1.0 (1.0-2.1) 01/24/17 05:15 Urine Color Yellow (YELLOW) 01/24/17 20:58 Urine Clarity Clear (Clear) 01/24/17 20:58 Urine pH 7.0 (5.0-8.0) 01/24/17 20:58 Ur Specific [place] 1.012 (1.003-1.030) 01/24/17 20:58 Urine Protein Negative mg/dL (NEGATIVE) 01/24/17 20:58 Urine Glucose (UA) Neg mg/dL (Normal) 01/24/17 20:58 Urine Ketones Negative mg/dL (NEGATIVE) 01/24/17 20:58 Urine Blood Negative (NEGATIVE) 01/24/17 20:58 Urine Nitrate Negative (NEGATIVE) 01/24/17 20:58 Urine Bilirubin Negative (NEGATIVE) 01/24/17 20:58 Urine Urobilinogen 2.0 mg/dL (0.2-1.0) 01/24/17 20:58 Ur Leukocyte Esterase Neg Tasha/uL (Negative) 01/24/17 20:58 Urine RBC (Auto) 3 /hpf (0-3) 01/22/17 18:00 Urine Microscopic WBC 1 /hpf (0-5) 01/24/17 20:58 Ur Squamous Epith Cells < 1 /hpf (0-5) 01/24/17 20:58 Urine Bacteria Rare (<OCC) 01/22/17 18:00 Salicylates < 1.0 mg/dl 01/22/17 11:00 Urine Opiates Screen Negative (NEGATIVE) 01/22/17 17:10 Urine Methadone Screen Negative (NEGATIVE) 01/22/17 17:10 Acetaminophen < 10.0 ug/ml (10.0-30.0) L 01/22/17 11:00 Ur Barbiturates Screen Negative (NEGATIVE) 01/22/17 17:10 Valproic Acid 72.8 ug/mL (50.0-100.0) 01/23/17 05:20 Ur Phencyclidine Scrn Negative (NEGATIVE) 01/22/17 17:10 Ur Amphetamines Screen Negative (NEGATIVE) 01/22/17 17:10 U Benzodiazepines Scrn Negative (NEGATIVE) 01/22/17 17:10 U Oth Cocaine Metabols Negative (NEGATIVE) 01/22/17 17:10 U Cannabinoids Screen Positive (NEGATIVE) H 01/22/17 17:10 Alcohol, Quantitative < 10 mg/dl (0-10) 01/22/17 11:00 - Hospital Course Hospital Course: This is a 26 y/o male with schizoaffective disorder was admitted for mixed overdose. He was on v\Valproic acid and was noted to be in toxic levels. He was also noted to be positive for cannabinoids. Discharge Exam - Head Exam Head Exam: ATRAUMATIC, NORMAL INSPECTION, NORMOCEPHALIC - Eye Exam Eye Exam: Normal appearance - Respiratory Exam Respiratory Exam: NORMAL BREATHING PATTERN - Cardiovascular Exam Cardiovascular Exam: REGULAR RHYTHM, Systolic Murmur - GI/Abdominal Exam GI & Abdominal Exam: Normal Bowel Sounds - Neurological Exam Neurological exam: CN II-XII Intact, Oriented x3 - Psychiatric Exam Psychiatric exam: Normal Mood Discharge Plan - Follow Up Plan Condition: FAIR Disposition: DISCHARGE TO PSYCH HOSPITAL Instructions: Suicide Prevention for Adults (DC) Additional Instructions: patient was advised to have inpatient Psych thru medical center.
== END 2017-01-24 20:45 | DRG 449 ==
LOC: H.ER 10:25 → H.EROBSV 12:45 → OBSVTOIN 16:54 → H.ERHOLD 16:57 → H.TEL 21:45
PROVIDERS: ADMIT Family Medicine; ATTEND Family Medicine
DX: T43.212A Poisoning by selective serotonin and norepinephrine reuptake inhibitors, intentional self-harm, initial encounter (principal); F25.9 Schizoaffective disorder, unspecified; I10 Essential (primary) hypertension; T42.6X2A Poisoning by other antiepileptic and sedative-hypnotic drugs, intentional self-harm, initial encounter; T43.222A Poisoning by selective serotonin reuptake inhibitors, intentional self-harm, initial encounter; T43.4X2A Poisoning by butyrophenone and thiothixene neuroleptics, intentional self-harm, initial encounter; T44.3X2A Poisoning by other parasympatholytics [anticholinergics and antimuscarinics] and spasmolytics, intentional self-harm, initial encounter; E78.5 Hyperlipidemia, unspecified; Z59.0 Homelessness; E78.00 Pure hypercholesterolemia, unspecified; F17.200 Nicotine dependence, unspecified, uncomplicated; G47.30 Sleep apnea, unspecified; J45.909 Unspecified asthma, uncomplicated; F12.90 Cannabis use, unspecified, uncomplicated

== ENCOUNTER 2017-02-03 10:59 | Inpatient (IN) | payer OTHER ==
[2017-02-03 11:02] VITALS: BMI 37.3
--- NOTE | 2017-02-03 11:54 | ED PDOC ---
HPI: Psych/Substance Abuse Time Seen by Provider: 02/03/17 11:10 Chief Complaint (Nursing): Psychiatric Evaluation Additional Complaint(s): 26 y/o male h/o Schizophrenia here with ingestion of and unknown amount of Welbutrin, and potentially Zyprexa as well, around [id number]. Pt reports that he was hearing voices telling him to overdose. Patient was discharged from [facility] 01/23 after he was also admitted for an overdose. and written 2 week supply of trazadone 50 mg qd/ zoloft 50mg qd/ haldol 10mg bid/depakote 750 bid/cogentin 1 mg bid. Poison control contacted and Pt placed on 1:1 Past Medical History Reviewed: Historical Data, Nursing Documentation, Vital Signs Vital Signs: Last Vital Signs Temp 98.2 F 02/03/17 11:02 Pulse 106 H 02/03/17 11:02 Resp 19 02/03/17 11:02 BP 125/68 02/03/17 11:02 Pulse Ox 98 02/03/17 11:02 - Medical History PMH: Anxiety, Asthma, Bipolar Disorder, Depression, Diabetes (per pt), Fractures (hx. right wrist), HTN, Hypercholesterolemia, Migraine, Schizophrenia , Sleep Apnea Denies: Hepatitis, HIV, Chronic Kidney Disease, Seizures, Sexually Transmitted Disease - Family History Family History: States: Unknown Family Hx - Immunization History Hx Tetanus Toxoid Vaccination: No Hx Influenza Vaccination: No Hx Pneumococcal Vaccination: No - Home Medications Home Medications: Ambulatory Orders Medication Instructions Recorded Benztropine [Cogentin] 1 mg PO BID #28 tab 01/16/17 Divalproex [Depakote DR(*BID*)] 1,000 mg PO HS #28 tcp 01/16/17 Divalproex [Depakote] 750 mg PO DAILY #42 tcp 01/16/17 Haloperidol [Haldol] 10 mg PO BID #28 tab 01/16/17 Sertraline [Zoloft] 50 mg PO DAILY #14 tab 01/16/17 traZODone [Desyrel] 50 mg PO HS #14 tab 01/16/17 - Allergies Allergies/Adverse Reactions: Allergies Allergy/AdvReac Type Severity Reaction Status Date / Time pollen extracts Allergy REDNESS Verified 02/03/17 11:25 Review of Systems ROS Statement: Except As Marked, All Systems Reviewed And Found Negative Physical Exam - Reviewed Nursing Documentation Reviewed: Yes Vital Signs Reviewed: Yes - Physical Exam Appears: Positive for: Well, Non-toxic, No Acute Distress Head Exam: Positive for: ATRAUMATIC, NORMAL INSPECTION, NORMOCEPHALIC Skin: Positive for: Normal Color, Warm, DRY Eye Exam: Positive for: EOMI, Normal appearance, PERRL ENT: Positive for: Normal ENT Inspection Neck: Positive for: Normal, Painless ROM Cardiovascular/Chest: Positive for: Regular Rate, Rhythm Respiratory: Positive for: CNT, Normal Breath Sounds Gastrointestinal/Abdominal: Positive for: Normal Exam, Bowel Sounds, Soft Back: Positive for: Normal Inspection Extremity: Positive for: Normal ROM Neurologic/Psych: Positive for: Alert, Oriented - Laboratory Results Result Diagrams: 02/03/17 12:00 02/03/17 12:00 - ECG O2 Sat by Pulse Oximetry: 98 Medical Decision Making Medical Decision Making: Pt calm and cooperative throughout ED stay. Placed on banana ripening room supervisor, vitals remain stable: see nursing notes. EKG: ST at 104, no axis deviation, no acute ST changes, as read by MONICA coates poison control consulted. Advised bloodwork, EKG and to observe for 6 hours at least On re-eval, Pt asleep. Vitals remains stable Pt responsive to verbal stimuli. Labs resulted and reviewed with poison control who advised observation at this time. Case discussed with mohinder Steiner on-call, who agreed with admission. ED MD, Dr. Rodriguez, aware. Disposition - Clinical Impression Clinical Impression: Schizophrenia, Substance abuse - Patient ED Disposition Is Patient to be Admitted: Yes - Disposition Disposition Time: 16:07 Condition: STABLE - Pt Status Changed To: Hospital Disposition Of: Observation - POA Present On Arrival: None
--- NOTE | 2017-02-03 12:23 | RAD ---
PROCEDURE: CHEST RADIOGRAPH, 1 VIEW HISTORY: med screening COMPARISON: Comparison chest 01/22/2017 FINDINGS: LUNGS: Poor inspiration with low lung volumes, mild crowded bronchovascular markings and suspected minor bibasilar atelectasis PLEURA: No pneumothorax or pleural fluid seen. CARDIOVASCULAR: Normal. OSSEOUS STRUCTURES: No significant abnormalities. VISUALIZED UPPER ABDOMEN: Normal. OTHER FINDINGS: None. IMPRESSION: Poor inspiration with low lung volumes, mild crowded bronchovascular markings and suspected minor bibasilar atelectasis
[2017-02-03 12:52] LABS: BASO % 0.8 % (0.0-2.0); EOS # 0.2 K/uL (0.0-0.7); EOS % 3.6 % (0.0-4.0); LYMPH # 1.9 K/uL (1.0-4.3); LYMPH % 30.2 % (20.0-40.0); MEAN CELL VOLUME 82.1 fl (80.0-94.0); MEAN CORPUSCULAR HEMOGLOBIN 26.9 pg (27.0-31.0); MEAN CORPUSCULAR HGB CONC 32.8 g/dL (33.0-37.0); MEAN PLATELET VOLUME 9.8 fl (7.2-11.7); MONO # 0.6 K/uL (0.0-0.8); MONO % 9.7 % (0.0-10.0); NEUT # 3.5 K/uL (1.8-7.0); NEUT % 55.7 % (50.0-75.0); NRBC % 0.2 % (0.0-0.0); RED CELL DISTRIBUTION WIDTH 17.2 % (11.5-14.5); WHITE BLOOD COUNT 6.3 K/uL (4.8-10.8)
[2017-02-03 13:00] LABS: ALB/GLOB RATIO 1.3 (1.0-2.1); ALCOHOL SERUM < 10 mg/dl (0-10); ALKALINE PHOSPHATASE 56 U/L (38-126); ALT/SGPT 43 U/L (21-72); AST/SGOT 32 U/L (17-59); BILIRUBIN,TOTAL 0.7 mg/dl (0.2-1.3); BLOOD UREA NITROGEN 10 mg/dl (9-20); CALCIUM 8.9 mg/dL (8.4-10.2); CARBON DIOXIDE 23 mmol/L (22-30); CHLORIDE 108 mmol/L (98-107); GFR AFRICAN-AMERICAN > 60; GLUCOSE,RANDOM 89 mg/dL (75-110); SODIUM 142 mmol/l (132-148)
[2017-02-04 06:47] LABS: EOS # 0.2 K/uL (0.0-0.7); EOS % 5.5 % (0.0-4.0); HEMATOCRIT 39.4 % (35.0-51.0); LYMPH # 1.8 K/uL (1.0-4.3); LYMPH % 44.7 % (20.0-40.0); MEAN CELL VOLUME 81.6 fl (80.0-94.0); MEAN CORPUSCULAR HEMOGLOBIN 26.8 pg (27.0-31.0); MEAN CORPUSCULAR HGB CONC 32.8 g/dL (33.0-37.0); MEAN PLATELET VOLUME 10.1 fl (7.2-11.7); MONO # 0.4 K/uL (0.0-0.8); NEUT # 1.6 K/uL (1.8-7.0); NEUT % 38.8 % (50.0-75.0); NRBC % 0.2 % (0.0-0.0)
[2017-02-04 07:12] LABS: T4 6.68 ug/dl (5.5-11.0)
[2017-02-04 07:25] LABS: THYROID STIMULATING HORMONE 2.44 mIU/ML (0.46-4.68)
[2017-02-04 09:55] LABS: ALB/GLOB RATIO 1.4 (1.0-2.1); ALKALINE PHOSPHATASE 47 U/L (38-126); ALT/SGPT 36 U/L (21-72); AST/SGOT 25 U/L (17-59); BILIRUBIN,TOTAL 0.7 mg/dl (0.2-1.3); BLOOD UREA NITROGEN 8 mg/dl (9-20); CALCIUM 9.1 mg/dL (8.4-10.2); CARBON DIOXIDE 25 mmol/L (22-30); CHLORIDE 109 mmol/L (98-107); GFR AFRICAN-AMERICAN > 60; GLUCOSE,RANDOM 148 mg/dL (75-110); POTASSIUM 4.2 MMOL/L (3.6-5.0); SODIUM 144 mmol/l (132-148); TOTAL PROTEIN 6.7 G/DL (6.3-8.2)
--- NOTE | 2017-02-04 10:59 | CARD ---
APPROVED REPORT EKG Measurement Heart [id number] <Conclusion> Sinus tachycardia Nonspecific T wave abnormality Abnormal ECG
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
--- NOTE | 2017-02-04 14:34 | CP.PCM.HP ---
History of Present Illness - History of Present Illness History of Present Illness: CC: Substance abuse. 26 y/o M, Homeless, admitted to [facility] on 02/03/17, for psychiatric evaluation associated to substance abuse 2nd to suicidal ideation on DOA. Worsening symptoms: Pt hearing voices telling him to kill himself and to overdose Aggravated factor: Unknown amount of substance ingested. Pt with recent discharged from [facility] on 01/23/17 Tx for drug overdose, he is not in compliance with medications. Pt denied: fever, hills, n/v/d, abdominal pain, CP, SOB, syncope. PMHx: Schizophrenia, Bipolar Disorder, Anxiety, Depression, Asthma, Sleep Apnea , DM, HTN, Hypecholesterolemia, Migraine, Suicide ideation/drugs ingestion. (Marijuana, Ecstasy, amphetamine), alcohol abuse. EKG shows: Sinus Tachycardia. CXR= Low lung volumes, minor bibasilar atelectasis. Present on Admission - Present on Admission Any Indicators Present on Admission: No Review of Systems - Constitutional Constitutional: Other (negative) - EENT Eyes: Other (negative) Ears: Other (negative) Nose/Mouth/Throat: Other (negative) - Cardiovascular Cardiovascular: Rapid Heart Rate - Respiratory Respiratory: Other (negative) - Gastrointestinal Gastrointestinal: Other (negtaive) - Genitourinary Genitourinary: Other (negative) - Musculoskeletal Musculoskeletal: Other (negative) - Integumentary Integumentary: Other (negative) - Neurological Neurological: Other (negative) - Psychiatric Psychiatric: Anxiety, Auditory Hallucinations, Depression, Suicidal Ideation - Endocrine Endocrine: Other (negative) - Hematologic/Lymphatic Hematologic: Other (negative) Past Patient History - Infectious Disease Hx of Infectious Diseases: None - Tetanus Immunizations Tetanus Immunization: Unknown - Past Medical History & Family History Past Medical History?: Yes - Past Social History Smoking Status: Unknown If Ever Smoked - CARDIAC Hx Cardiac Disorders: Yes Hx Hypercholesterolemia: Yes Hx Hypertension: Yes - PULMONARY Hx Respiratory Disorders: Yes Hx Asthma: Yes Hx Sleep Apnea: Yes - NEUROLOGICAL Hx Neurological Disorder: Yes Hx Migraine: Yes Hx Seizures: No - HEENT Hx HEENT Problems: No - RENAL Hx Chronic Kidney Disease: No - ENDOCRINE/METABOLIC Hx Endocrine Disorders: Yes Hx Diabetes Mellitus Type 1: Yes - HEMATOLOGICAL/ONCOLOGICAL Hx Blood Disorders: No Hx Human Immunodeficiency Virus (HIV): No - INTEGUMENTARY Hx Dermatological Problems: No - MUSCULOSKELETAL/RHEUMATOLOGICAL Hx Musculoskeletal Disorders: Yes Hx Falls: No Hx Fractures: Yes (hx. right wrist) - GASTROINTESTINAL Hx Gastrointestinal Disorders: No - GENITOURINARY/GYNECOLOGICAL Hx Genitourinary Disorders: No Hx Sexually Transmitted Disorders: No - PSYCHIATRIC Hx Psychophysiologic Disorder: Yes Hx Anxiety: Yes Hx Bipolar Disorder: Yes Hx Depression: Yes Hx Schizophrenia: Yes Hx Substance Use: Yes (hx of drug overdose) - SURGICAL HISTORY Hx Surgeries: No - ANESTHESIA Hx Anesthesia: No Hx Anesthesia Reactions: No Hx Malignant Hyperthermia: No Meds Allergies/Adverse Reactions: Allergies Allergy/AdvReac Type Severity Reaction Status Date / Time pollen extracts Allergy REDNESS Verified 02/03/17 11:25 Physical Exam - Constitutional Appears: No Acute Distress - Head Exam Head Exam: NORMAL INSPECTION - Eye Exam Eye Exam: PERRL - ENT Exam ENT Exam: Normal Oropharynx - Neck Exam Neck exam: Positive for: Normal Inspection - Respiratory Exam Respiratory Exam: NORMAL BREATHING PATTERN - Cardiovascular Exam Cardiovascular Exam: Tachycardia - GI/Abdominal Exam GI & Abdominal Exam: Normal Bowel Sounds, Soft - Extremities Exam Extremities exam: Positive for: normal inspection - Back Exam Back exam: NORMAL INSPECTION - Neurological Exam Neurological exam: Alert, Oriented x3 - Psychiatric Exam Psychiatric exam: Anxious, Depressed - Skin Skin Exam: Warm Results - Vital Signs Recent Vital Signs: Last Vital Signs Temp 98.4 F 02/04/17 12:26 Pulse 87 02/04/17 12:26 Resp 18 02/04/17 12:26 BP 103/69 02/04/17 12:26 Pulse Ox 98 02/04/17 12:26 reviewed Lawrence - Labs Result Diagrams: 02/04/17 05:55 02/04/17 09:15 Labs: Laboratory Results - last 24 hr 02/03/17 02/04/17 02/04/17 17:15 05:55 05:55 WBC 4.0 L RBC 4.83 Hgb 12.9 Hct 39.4 MCV 81.6 MCH 26.8 L MCHC 32.8 L RDW 17.0 H Plt Count 170 MPV 10.1 Neut % (Auto) 38.8 L Lymph % (Auto) 44.7 H [place] % (Auto) 10.0 Eos % (Auto) 5.5 H Baso % (Auto) 1.0 Neut # 1.6 L Lymph # 1.8 [place] # 0.4 Eos # 0.2 Baso # 0.0 Sodium Potassium Chloride Carbon Dioxide Anion Gap BUN Creatinine Est GFR ( Amer) Est GFR (Non-Af Amer) Random Glucose Calcium Total Bilirubin AST ALT Alkaline Phosphatase Total Protein Albumin Globulin Albumin/Globulin Ratio Triglycerides 78 Cholesterol 194 LDL Cholesterol Direct 120 HDL Cholesterol 47 Vitamin B12 339 Thyroxine (T4) 6.68 TSH 3rd Generation 2.44 Urine Opiates Screen Negative Urine Methadone Screen Negative Ur Barbiturates Screen Negative Ur Phencyclidine Scrn Negative Ur Amphetamines Screen Positive H U Benzodiazepines Scrn Negative U Oth Cocaine Metabols Negative U Cannabinoids Screen Positive H 02/04/17 09:15 WBC RBC Hgb Hct MCV MCH MCHC RDW Plt Count MPV Neut % (Auto) Lymph % (Auto) [place] % (Auto) Eos % (Auto) Baso % (Auto) Neut # Lymph # [place] # Eos # Baso # Sodium 144 Potassium 4.2 Chloride 109 H Carbon Dioxide 25 Anion Gap 14 BUN 8 L Creatinine 0.7 L Est GFR ( Amer) > 60 Est GFR (Non-Af Amer) > 60 Random Glucose 148 H Calcium 9.1 Total Bilirubin 0.7 AST 25 ALT 36 Alkaline Phosphatase 47 Total Protein 6.7 Albumin 3.9 Globulin 2.8 Albumin/Globulin Ratio 1.4 Triglycerides Cholesterol LDL Cholesterol Direct HDL Cholesterol Vitamin B12 Thyroxine (T4) TSH 3rd Generation Urine Opiates Screen Urine Methadone Screen Ur Barbiturates Screen Ur Phencyclidine Scrn Ur Amphetamines Screen U Benzodiazepines Scrn U Oth Cocaine Metabols U Cannabinoids Screen reviewed J.P. - EKG Data EKG comments: reviewed J.P. - Imaging and Cardiology Chest x-ray Status: Report reviewed by me (J.P.) Assessment & Plan (1) Substance abuse Status: Acute (2) Schizoaffective disorder Status: Acute Priority: High (3) Suicidal overdose Status: Acute Priority: High (4) Hypertension Status: Chronic (5) Diabetes mellitus Status: Chronic - Assessment and Plan (Free Text) Plan: Continue Ativan and current Tx, Continue 1:1 observation, Psychiatric consult appreciated. - Date & Time Date: 02/04/17 Time: 12:20
--- NOTE | 2017-02-05 13:56 | CP.PCM.PN ---
Subjective - Date & Time of Evaluation Date of Evaluation: 02/05/17 Time of Evaluation: 13:30 - Subjective Subjective: psychiatry follow up met with pt, discussed with senior corporate recruiter, talked to director of behavioral health at [facility] as well as the screening supervision (fredo) from [facility] as well as reviewed chart. cc: i feel like they are coming at me, like they are attacking me. hpi: pt states he feels dizzy, still states he is hearing voices. he states "i wake up and the voices are telling me to kill myself..that i'm worthless" he states "i know i run from my treatment...but now i'm asking for help....all these hospitals aren't helping me." pt states he was a [facility] in the past for 6 months and that was very helpful. he states when he brought that up with the [facility] screener they replied "so you want to go to summer camp there and have a good time." pt states he only wants to take zyprexa. he states depakote doesn' t help and he doesn't like haldol. he reports his mother is concerned and wants him to go to a hospital. he acknowledges he runs away from treatment and knows that when he goes to a voluntary unit. he states he wanted to stay at [facility] last week but states "a doctor came to me the day i was going to see the informatica mdm architect and told me i didn't need to stay and that i could just sign out" he states that made him nervous and that he ran from the treatment. he states after he left he felt hopeless and that nobody wanted to help him and that the voices told him to overdose and just kill himself. this is his second suicide attempt within days of discharge from the hospital this year. mse: alert, oriented x 3. mood is depressed. affect constricted. tp are goal directed. pt reports ah with commands to kill himself and with negative comments about him. he reports he does have suicidal thoughts and would overdose again if not here. he denies vh. his memory is intact. he has fair insight. poor judgment. assessment: schizoaffective disorder recommendation: based on number of hospitalizations, pt's history of leaving treatment, his recent escalation of behaviors- attempting suicide twice requiring medical care after discharge from short hospital stays and his prior need for prolonged treatment, it is my opinion that the pt would benefit from involuntary or consensual admission to an [facility] for further stabilization and arrangement of the appropriate level of aftercare to safety contain and treat the patient. have talked to fredo from [facility] and expressed the opinions above and have asked for a rescreening fredo has stated she needs to be in touch with MD at [facility] and will call Francisco Frias, director of behavioral health with an update regarding the rescreening will restart zyprexa at low dose continue 1:1 supervision Objective - Vital Signs/Intake and Output Vital Signs (last 24 hours): Temp Pulse Resp BP Pulse Ox 98.6 F 85 18 130/82 97 02/05/17 12:00 02/05/17 12:00 02/05/17 12:00 02/05/17 12:00 02/05/17 12:00 - Medications Medications: Current Medications Acetaminophen (Tylenol 325mg Tab) 650 mg PO Q4 PRN PRN Reason: body aches Last Admin: 02/04/17 18:22 Dose: 650 mg Benztropine Mesylate (Cogentin) 1 mg PO BID PRN PRN Reason: eps Haloperidol (Haldol) 5 mg PO Q6H PRN PRN Reason: psychosis/agitation Haloperidol Lactate (Haldol) 5 mg IM Q6 PRN PRN Reason: Agitation and refusing oral Lorazepam (Ativan) 1 mg IVP Q4 PRN PRN Reason: Agitation Last Admin: 02/05/17 12:05 Dose: 1 mg Olanzapine (Zyprexa Zydis) 5 mg PO DAILY NETO
--- NOTE | 2017-02-05 14:47 | CP.PCM.PN ---
Subjective - Date & Time of Evaluation Date of Evaluation: 02/05/17 Time of Evaluation: 11:30 - Subjective Subjective: F/U Substance abuse. Pt states "why he should be alive" Objective - Vital Signs/Intake and Output Vital Signs (last 24 hours): Temp Pulse Resp BP Pulse Ox 98.6 F 85 18 130/82 97 02/05/17 12:00 02/05/17 12:00 02/05/17 12:00 02/05/17 12:00 02/05/17 12:00 - Medications Medications: Current Medications Acetaminophen (Tylenol 325mg Tab) 650 mg PO Q4 PRN PRN Reason: body aches Last Admin: 02/04/17 18:22 Dose: 650 mg Benztropine Mesylate (Cogentin) 1 mg PO BID PRN PRN Reason: eps Haloperidol (Haldol) 5 mg PO Q6H PRN PRN Reason: psychosis/agitation Haloperidol Lactate (Haldol) 5 mg IM Q6 PRN PRN Reason: Agitation and refusing oral Lorazepam (Ativan) 1 mg IVP Q4 PRN PRN Reason: Agitation Last Admin: 02/05/17 12:05 Dose: 1 mg Lorazepam (Ativan) 2 mg PO Q4 PRN PRN Reason: Agitation Olanzapine (Zyprexa Zydis) 5 mg PO DAILY NETO - Constitutional Appears: No Acute Distress - Head Exam Head Exam: NORMAL INSPECTION - Eye Exam Eye Exam: PERRL - ENT Exam ENT Exam: Normal Oropharynx - Neck Exam Neck Exam: Normal Inspection - Respiratory Exam Respiratory Exam: NORMAL BREATHING PATTERN - Cardiovascular Exam Cardiovascular Exam: REGULAR RHYTHM - GI/Abdominal Exam GI & Abdominal Exam: Soft, Normal Bowel Sounds - Extremities Exam Extremities Exam: Normal Inspection - Back Exam Back Exam: NORMAL INSPECTION - Neurological Exam Neurological Exam: Alert, Oriented x3 - Psychiatric Exam Psychiatric exam: Anxious, Depressed - Skin Skin Exam: Warm Assessment and Plan (1) Substance abuse Status: Acute (2) Schizoaffective disorder Status: Acute (3) Suicidal overdose Status: Acute (4) Hypertension Status: Chronic (5) Diabetes mellitus Status: Chronic - Assessment and Plan (Free Text) Plan: Pt to be screening from [facility] to have involuntary admission to Psychiatric unit.
[2017-02-05] MEDS: OLANZapine 5 mg Disintegrating Tab PO SCH (15:47)
[2017-02-05 21:25] LABS: URINE BILIRUBIN NEGATIVE (NEGATIVE); URINE BLOOD NEGATIVE (NEGATIVE); URINE COLOR YELLOW (YELLOW); URINE GLUCOSE (UA) NEG (Normal); URINE KETONE NEGATIVE (NEGATIVE); URINE LEUKOCYTE ESTERASE NEG Leu/uL (Negative); URINE PROTEIN NEGATIVE (NEGATIVE); WBC URINE 1 /hpf (0-5)
[2017-02-06] MEDS: OLANZapine 5 mg Disintegrating Tab PO SCH (09:15)
[2017-02-06 15:47] VITALS: RESP 20
--- NOTE | 2017-02-06 17:10 | CP.PCM.PN ---
Subjective - Date & Time of Evaluation Date of Evaluation: 02/06/17 Time of Evaluation: 11:15 - Subjective Subjective: F/U Substance abuse. Objective - Vital Signs/Intake and Output Vital Signs (last 24 hours): Temp Pulse Resp BP Pulse Ox 98.4 F 91 H 20 131/72 98 02/06/17 15:47 02/06/17 15:47 02/06/17 15:47 02/06/17 15:47 02/06/17 15:47 - Medications Medications: Current Medications Acetaminophen (Tylenol 325mg Tab) 650 mg PO Q4 PRN PRN Reason: body aches Last Admin: 02/06/17 11:54 Dose: 650 mg Benztropine Mesylate (Cogentin) 1 mg PO BID PRN PRN Reason: eps Haloperidol (Haldol) 5 mg PO Q6H PRN PRN Reason: psychosis/agitation Haloperidol Lactate (Haldol) 5 mg IM Q6 PRN PRN Reason: Agitation and refusing oral Lorazepam (Ativan) 1 mg IVP Q4 PRN PRN Reason: Agitation Last Admin: 02/05/17 12:05 Dose: 1 mg Lorazepam (Ativan) 2 mg PO Q4 PRN PRN Reason: Agitation Last Admin: 02/06/17 17:01 Dose: 2 mg Olanzapine (Zyprexa Zydis) 5 mg PO DAILY [facility] Last Admin: 02/06/17 09:15 Dose: 5 mg - Constitutional Appears: No Acute Distress - Head Exam Head Exam: NORMAL INSPECTION - Eye Exam Eye Exam: PERRL - ENT Exam ENT Exam: Normal Oropharynx - Neck Exam Neck Exam: Normal Inspection - Respiratory Exam Respiratory Exam: NORMAL BREATHING PATTERN - Cardiovascular Exam Cardiovascular Exam: REGULAR RHYTHM - GI/Abdominal Exam GI & Abdominal Exam: Soft, Normal Bowel Sounds - Extremities Exam Extremities Exam: Normal Inspection - Back Exam Back Exam: NORMAL INSPECTION - Neurological Exam Neurological Exam: Alert, Oriented x3 - Psychiatric Exam Psychiatric exam: Anxious, Depressed - Skin Skin Exam: Warm Assessment and Plan (1) Substance abuse Status: Acute (2) Schizoaffective disorder Status: Acute (3) Suicidal overdose Status: Acute (4) Hypertension Status: Chronic (5) Diabetes mellitus Status: Chronic
[2017-02-07 01:23] VITALS: BP 142/89; PULSE 78; TEMP 97.7; O2SAT 99
== END 2017-02-07 02:25 | DRG 430 ==
LOC: H.ER 10:59 → H.ERHOLD 16:07 → H.TEL 19:03 → OBSVTOIN 02-04 14:23
PROVIDERS: ADMIT Internal Medicine Pulmonary Disease; ATTEND Internal Medicine Pulmonary Disease
DX: F25.8 Other schizoaffective disorders (principal); E11.9 Type 2 diabetes mellitus without complications; I10 Essential (primary) hypertension; F41.9 Anxiety disorder, unspecified; J45.909 Unspecified asthma, uncomplicated; E78.00 Pure hypercholesterolemia, unspecified; G47.30 Sleep apnea, unspecified; F12.10 Cannabis abuse, uncomplicated; F10.10 Alcohol abuse, uncomplicated; F19.10 Other psychoactive substance abuse, uncomplicated; Z91.14 Patient's other noncompliance with medication regimen; Z91.5 Personal history of self-harm; Z59.0 Homelessness; Z81.8 Family history of other mental and behavioral disorders

== ENCOUNTER 2017-02-18 15:55 | Observation (INO) | payer OTHER ==
[2017-02-18 15:56] VITALS: BMI 37.3
--- NOTE | 2017-02-18 17:15 | ED PDOC ---
HPI: Psych/Substance Abuse Time Seen by Provider: 02/18/17 16:15 Chief Complaint (Nursing): Psychiatric Evaluation History Per: Patient Additional Complaint(s): Pt. states over the weekend his mother since then he's been feeling depressed. Pt. states he's had thoughts about hurting himself and others but has not formulated a plan. Pt. states he has a hx of schizophrenia and depression and has not been taking his Zyprexa in several months. Offers no physical complaints at this time. Past Medical History Reviewed: Historical Data, Nursing Documentation, Vital Signs Vital Signs: Last Vital Signs Temp 98.5 F 02/18/17 16:01 Pulse 109 H 02/18/17 16:01 Resp 16 02/18/17 16:01 BP 152/76 H 02/18/17 16:01 Pulse Ox 100 02/18/17 16:01 - Medical History PMH: Anxiety, Asthma, Bipolar Disorder, Depression, Diabetes (per pt), Fractures (hx. right wrist), HTN, Hypercholesterolemia, Migraine, Schizophrenia , Sleep Apnea Denies: Hepatitis, HIV, Chronic Kidney Disease, Seizures, Sexually Transmitted Disease - Family History Family History: States: No Known Family Hx - Immunization History Hx Tetanus Toxoid Vaccination: No Hx Influenza Vaccination: No Hx Pneumococcal Vaccination: No - Home Medications Home Medications: Ambulatory Orders Medication Instructions Recorded Benztropine [Cogentin] 1 mg PO BID #28 tab 01/16/17 Divalproex [Depakote DR(*BID*)] 1,000 mg PO HS #28 tcp 01/16/17 Divalproex [Depakote] 750 mg PO DAILY #42 tcp 01/16/17 Haloperidol [Haldol] 10 mg PO BID #28 tab 01/16/17 Sertraline [Zoloft] 50 mg PO DAILY #14 tab 01/16/17 traZODone [Desyrel] 50 mg PO HS #14 tab 01/16/17 - Allergies Allergies/Adverse Reactions: Allergies Allergy/AdvReac Type Severity Reaction Status Date / Time pollen extracts Allergy REDNESS Verified 02/18/17 16:00 Review of Systems ROS Statement: Except As Marked, All Systems Reviewed And Found Negative Psych: Positive for: Depression, Suicidal ideation Physical Exam - Reviewed Nursing Documentation Reviewed: Yes Vital Signs Reviewed: Yes - Physical Exam Appears: Positive for: Well, Non-toxic, No Acute Distress Head Exam: Positive for: ATRAUMATIC, NORMAL INSPECTION, NORMOCEPHALIC Skin: Positive for: Normal Color, Warm, DRY Eye Exam: Positive for: EOMI, Normal appearance, PERRL ENT: Positive for: Normal ENT Inspection Neck: Positive for: Normal, Painless ROM Cardiovascular/Chest: Positive for: Regular Rate, Rhythm Respiratory: Positive for: CNT, Normal Breath Sounds Gastrointestinal/Abdominal: Positive for: Normal Exam, Bowel Sounds, Soft Back: Positive for: Normal Inspection Extremity: Positive for: Normal ROM Neurologic/Psych: Positive for: Alert, Oriented, Mood/Affect (flat, distant). Negative for: Aphasia, Facial Droop - ECG O2 Sat by Pulse Oximetry: 100 - Progress ED Course And Treament: Pt. placed on 1:1. Pt. evaluated by [employer] worker helper, Magda, who spoke with Dr. Mckeon who knows patient well and states that this is pt.'s baseline and that pt. can be discharged. Disposition - Clinical Impression Clinical Impression: Schizoaffective disorder - Patient ED Disposition Is Patient to be Admitted: No - Disposition Disposition: Routine/Home Disposition Time: 17:52 Condition: STABLE Instructions: Schizoaffective Disorder (ED)
--- NOTE | 2017-02-18 21:10 | ED PDOC ---
- Laboratory Results Result Diagrams: 02/18/17 21:19 02/18/17 21:19 - ECG O2 Sat by Pulse Oximetry: 100 - Progress ED Course And Treament: case endorsed to keno writer from Mahi ANDERSON pending labs, urine, and [facility] eval 21:00 Patient refusing lab work; patient informed that necessary as part of screening process by [facility]. Patient agreeable 23:00 Patient resting comfortably, awaiting screener 1:30 Patient evaluated by [facility] screener, can not be accepted for commitment because patient states he wants to voluntarily sign in to psych unit here. drop worker informed Dr. Mckeon of findings, who states patient can be discharged home with outpatient referrals, as he is not appropriate for this unit. Case discussed with Dr. Ambrose, who in his opinion, will require [id number] psychiatric evaluation for appropriate dispo as patient still stating he is suicidal. Dr. Mckeon aware, will evaluate patient in ED later on today. 3:30 Patient sleeping, no distress 5:30 Patient sleeping, no distress Disposition - Clinical Impression Clinical Impression: Schizoaffective disorder - POA Present On Arrival: None - Disposition Disposition: Transfer of Care Disposition Time: 06:00 Condition: STABLE Patient Signed Over To: Joaquín Ambrose Handoff Comments: pending Psychiatrist bryon
[2017-02-18 21:15] LABS: RBC URINE 1 /hpf (0-3); URINE BILIRUBIN NEGATIVE (NEGATIVE); URINE BLOOD NEGATIVE (NEGATIVE); URINE COLOR AMBER (YELLOW); URINE GLUCOSE (UA) NEG (Normal); URINE KETONE NEGATIVE (NEGATIVE); URINE LEUKOCYTE ESTERASE NEG Leu/uL (Negative); URINE PROTEIN NEGATIVE (NEGATIVE); URINE UROBILINOGEN 0.2-1.0 mg/dL (0.2-1.0); WBC URINE 1 /hpf (0-5)
[2017-02-18 21:24] LABS: BASO # 0.1 K/uL (0.0-0.2); BASO % 1.4 % (0.0-2.0); EOS # 0.2 K/uL (0.0-0.7); EOS % 3.5 % (0.0-4.0); HEMATOCRIT 40.4 % (35.0-51.0); LYMPH # 2.6 K/uL (1.0-4.3); LYMPH % 40.5 % (20.0-40.0); MEAN CORPUSCULAR HEMOGLOBIN 26.9 pg (27.0-31.0); MEAN CORPUSCULAR HGB CONC 32.8 g/dL (33.0-37.0); MEAN PLATELET VOLUME 9.2 fl (7.2-11.7); MONO # 0.6 K/uL (0.0-0.8); MONO % 9.3 % (0.0-10.0); NEUT # 2.9 K/uL (1.8-7.0); NEUT % 45.3 % (50.0-75.0); NRBC % 0.1 % (0.0-0.0); RED CELL DISTRIBUTION WIDTH 17.3 % (11.5-14.5); WHITE BLOOD COUNT 6.4 K/uL (4.8-10.8)
[2017-02-18 21:48] LABS: ALB/GLOB RATIO 1.4 (1.0-2.1); ALCOHOL SERUM < 10 mg/dl (0-10); ALKALINE PHOSPHATASE 43 U/L (38-126); ALT/SGPT 41 U/L (21-72); AST/SGOT 32 U/L (17-59); BILIRUBIN,TOTAL 0.7 mg/dl (0.2-1.3); BLOOD UREA NITROGEN 12 mg/dl (9-20); CALCIUM 9.1 mg/dL (8.4-10.2); CARBON DIOXIDE 22 mmol/L (22-30); CHLORIDE 105 mmol/L (98-107); GFR AFRICAN-AMERICAN > 60; GLUCOSE,RANDOM 121 mg/dL (75-110); POTASSIUM 3.7 MMOL/L (3.6-5.0); SODIUM 140 mmol/l (132-148); TOTAL PROTEIN 7.5 G/DL (6.3-8.2)
--- NOTE | 2017-02-19 05:56 | ED PDOC ---
- Laboratory Results Result Diagrams: 02/18/17 21:19 02/18/17 21:19 - ECG O2 Sat by Pulse Oximetry: 100 Medical Decision Making Medical Decision Making: Patient s/o from Caryl Meyers PA-C at 0600 pending face to face eval with psychiatrist. Patient s/o to Dr. Russell at 0700 pending face to face eval with psychiatrist. Scribe Attestation: Documented by Val Davis acting as a scribe for Joaquín Ambrose MD. Provider Scribe Attestation: All medical record entries made by the Scribe were at my direction and personally dictated by me. I have reviewed the chart and agree that the record accurately reflects my personal performance of the history, physical exam, medical decision making, and the department course for this patient. I have also personally directed, reviewed, and agree with the discharge instructions and disposition. Disposition - Clinical Impression Clinical Impression: Schizoaffective disorder - POA Present On Arrival: None - Disposition Disposition: Transfer of Care Disposition Time: 19:06 Condition: STABLE Patient Signed Over To: Jerry Russell Handoff Comments: pending face to face eval with psychiatrist
--- NOTE | 2017-02-19 07:43 | ED PDOC ---
- Laboratory Results Result Diagrams: 02/18/17 21:19 02/18/17 21:19 - ECG O2 Sat by Pulse Oximetry: 98 (RA) Pulse Ox Interpretation: Normal Disposition Counseled Patient/Family Regarding: Studies Performed, Diagnosis, Need For Followup - Clinical Impression Clinical Impression: Schizoaffective disorder - POA Present On Arrival: None - Disposition Disposition: Routine/Home Disposition Time: 09:00 Condition: IMPROVED ED OBSERVATION Date of observation admission: 02/18/17 Time of observation admission: 19:08 - Observation admission statement Patient is being placed in observation because:: pending evaluation by Dr. Mckeon psychiatrist - Progress Note Progress Note: 02/19/17 07:00 Signed over to me by Milagros Ambrose MD pending evaluation by psychiatrist Dr. Mckeon 02/19/17 8:45 resting comfortably 02/19/17 10:09 Patient stable for discharge per Dr. Mckeon psychiatrist. (she saw pt at bedside ) Dx schizoaffective disorder. 02/19/17 12:59 Additional Comments - Additional Comments Additional Comments: Scribe Attestation: Documented by Miguel Angel Lopes acting as a scribe for Hubert Russell MD. Provider Scribe Attestation: All medical record entries made by the Scribe were at my direction and personally dictated by me. I have reviewed the chart and agree that the record accurately reflects my personal performance of the history, physical exam, medical decision making, and the department course for this patient. I have also personally directed, reviewed, and agree with the discharge instructions and disposition.
[2017-02-19 09:48] VITALS: BP 106/61; PULSE 84; RESP 20; TEMP 98.3
[2017-02-19 10:10] VITALS: O2SAT 98
--- NOTE | 2017-02-19 10:38 | CP.PCM.CON ---
History of Present Illness - History of Present Illness History of Present Illness: Psychiatry consult for evaluation for need for acute inpatient hospitalization CC: "I came for help." HPI: 26 yo male, w/ h/o schizoaffective disorder, h/o seeking inpatient psychiatric admissions and malingering for secondary gain of housing/care, presented to the ER after being [place] [facility] [place] accepted for [place] , initially denied suicidal ideation, but then started to say he was suicidal after he was told he would be discharged from the ER. Patient is well known to chart writer from previous admissions. Although he does have a significant psychiatric history of psychosis, mood disturbances and past suicide attempt; he is also known to malinger and feign symptoms in order to gain admissions to hospitals or prolong his hospitalizations. His Utox was + for amphetamines and marijuana. He has also been threatening towards psychiatrists, by physical intimidation and threatening to go to a psychiatrist's home. He seems to have significant antisocial traits in addition to schizoaffective disorder. Upon interview with the chart writer, he is evasive, irritable and angry; just vaguely stating that he has "suicidal ideation" and "feels depressed" but was difficult to question due to him just staying in the room with his eyes closed, and not engaging appropriately in conversation with the chart writer. NO AH/VH/internal preoccupations/HI. Initial evaluation by pet care worker: 26 year old AA male self referred to this ED. Pt reports his "parent" this past weekend. Pt is hostile and evasive with this chart writer. He reports that he is delusional but can not elaborate or provide this chart writer with any information regarding the delusions. Pt denied suicidal/homicidal ideations to this chart writer and stated that he was "not thinking about that right now". When asked when was the last time he reported " I don't know". Pt also denied a/v/h. Pt refused to answer questions regarding past psych hx although this chart writer is familiar with Pt. He reported he has not been able to follow up with outpatient because his parent . Pt will not disclose which parent or how. At this time, Pt does not appear to be in any acute psychiatric distress, he is not observed to be responding to any internal stimuli and denied suicidal/homicidal ideations several times to this chart writer. He also denied having any plan/intent. As per [facility] screener, Pt was recently d/c from [facility] on Friday and was in the psych ER 2 hours ago. Pt was seen by head of psychiatry Dr. Vega and was d/c with a recommendation to f/u with outpatient. Pt did not present with any suicidal/homicidal ideations. PPHX: Pt has been hospitalized over 14 times at [facility], [facility], and [place]. Most recently, Pt was d/c from [facility] 02/15/17. MSE: A + O x 3, irritable, poor eye contact, not cooperative with interview, speech normal volume but with irritable tone. mood "depressed" , affect- irritable. NO AH/VH/paranoia/delusions. NO HI. Impression: 26 yo male, w/ h/o schizoaffective disorder, h/o seeking inpatient psychiatric admissions and malingering for secondary gain of housing/care, presented to the ER after being evaluated at [facility] and not accepted for admission , initially denied suicidal ideation, but then started to say he was suicidal after he was told he would be discharged from the ER. Patient evasive and irritable with chart writer, he seems to be malingering to gain psychiatric admission. -No psychiatric admission indicated at this time -Patient should already have outpatient follow-up arranged from his recent admission/discharged from [facility] Past Patient History - Infectious Disease Hx of Infectious Diseases: None - Tetanus Immunizations Tetanus Immunization: Unknown - Past Medical History & Family History Past Medical History?: Yes - Past Social History Smoking Status: Unknown If Ever Smoked - CARDIAC Hx Hypercholesterolemia: Yes Hx Hypertension: Yes - PULMONARY Hx Asthma: Yes Hx Sleep Apnea: Yes - NEUROLOGICAL Hx Migraine: Yes Hx Seizures: No - HEENT Hx HEENT Problems: No - RENAL Hx Chronic Kidney Disease: No - ENDOCRINE/METABOLIC Hx Endocrine Disorders: Yes Hx Diabetes Mellitus Type 1: Yes - HEMATOLOGICAL/ONCOLOGICAL Hx Human Immunodeficiency Virus (HIV): No - INTEGUMENTARY Hx Dermatological Problems: No - MUSCULOSKELETAL/RHEUMATOLOGICAL Hx Fractures: Yes (hx. right wrist) - GASTROINTESTINAL Hx Gastrointestinal Disorders: No - GENITOURINARY/GYNECOLOGICAL Hx Sexually Transmitted Disorders: No - PSYCHIATRIC Hx Anxiety: Yes Hx Bipolar Disorder: Yes Hx Depression: Yes Hx Schizophrenia: Yes - SURGICAL HISTORY Hx Surgeries: No - ANESTHESIA Hx Anesthesia: No Hx Anesthesia Reactions: No Hx Malignant Hyperthermia: No Meds Allergies/Adverse Reactions: Allergies Allergy/AdvReac Type Severity Reaction Status Date / Time pollen extracts Allergy REDNESS Verified 02/18/17 16:00 Results - Vital Signs Recent Vital Signs: Last Vital Signs Temp 98.3 F 02/19/17 09:48 Pulse 84 02/19/17 09:48 Resp 20 02/19/17 09:48 BP 106/61 02/19/17 09:48 Pulse Ox 98 02/19/17 10:20 - Labs Result Diagrams: 02/18/17 21:19 02/18/17 21:19 Labs: Laboratory Results - last 24 hr 02/18/17 02/18/17 02/18/17 20:45 21:19 21:19 WBC 6.4 D RBC 4.93 Hgb 13.2 Hct 40.4 MCV 82.0 MCH 26.9 L MCHC 32.8 L RDW 17.3 H Plt Count 194 MPV 9.2 Neut % (Auto) 45.3 L Lymph % (Auto) 40.5 H Perry % (Auto) 9.3 Eos % (Auto) 3.5 Baso % (Auto) 1.4 Neut # 2.9 Lymph # 2.6 Perry # 0.6 Eos # 0.2 Baso # 0.1 Sodium 140 Potassium 3.7 Chloride 105 Carbon Dioxide 22 Anion Gap 17 BUN 12 Creatinine 0.7 L Est GFR ( Amer) > 60 Est GFR (Non-Af Amer) > 60 Random Glucose 121 H Calcium 9.1 Total Bilirubin 0.7 AST 32 ALT 41 Alkaline Phosphatase 43 Total Protein 7.5 Albumin 4.4 Globulin 3.1 Albumin/Globulin Ratio 1.4 Urine Color Argenis Urine Clarity Clear Urine pH 5.0 Ur Specific Victor 1.028 Urine Protein Negative Urine Glucose (UA) Neg Urine Ketones Negative Urine Blood Negative Urine Nitrate Negative Urine Bilirubin Negative Urine Urobilinogen 0.2-1.0 Ur Leukocyte Esterase Neg Urine RBC (Auto) 1 Urine Microscopic WBC 1 Urine Opiates Screen Urine Methadone Screen Ur Barbiturates Screen Ur Phencyclidine Scrn Ur Amphetamines Screen U Benzodiazepines Scrn U Oth Cocaine Metabols U Cannabinoids Screen Alcohol, Quantitative < 10 02/18/17 22:20 WBC RBC Hgb Hct MCV MCH MCHC RDW Plt Count MPV Neut % (Auto) Lymph % (Auto) Perry % (Auto) Eos % (Auto) Baso % (Auto) Neut # Lymph # Perry # Eos # Baso # Sodium Potassium Chloride Carbon Dioxide Anion Gap BUN Creatinine Est GFR ( Amer) Est GFR (Non-Af Amer) Random Glucose Calcium Total Bilirubin AST ALT Alkaline Phosphatase Total Protein Albumin Globulin Albumin/Globulin Ratio Urine Color Urine Clarity Urine pH Ur Specific Victor Urine Protein Urine Glucose (UA) Urine Ketones Urine Blood Urine Nitrate Urine Bilirubin Urine Urobilinogen Ur Leukocyte Esterase Urine RBC (Auto) Urine Microscopic WBC Urine Opiates Screen Negative Urine Methadone Screen Negative Ur Barbiturates Screen Negative Ur Phencyclidine Scrn Negative Ur Amphetamines Screen Positive H U Benzodiazepines Scrn Negative U Oth Cocaine Metabols Negative U Cannabinoids Screen Positive H Alcohol, Quantitative
== END 2017-02-19 10:16 | disposition home or self-care (01) ==
LOC: H.ER 15:55 → H.EROBSV 19:06
PROVIDERS: ADMIT Emergency Medicine; ATTEND Emergency Medicine
DX: F25.9 Schizoaffective disorder, unspecified (principal); E10.9 Type 1 diabetes mellitus without complications; Z79.4 Long term (current) use of insulin; E78.00 Pure hypercholesterolemia, unspecified; I10 Essential (primary) hypertension; G47.30 Sleep apnea, unspecified; F31.9 Bipolar disorder, unspecified; J45.909 Unspecified asthma, uncomplicated; R45.851 Suicidal ideations; Z76.5 Malingerer [conscious simulation]

== ENCOUNTER 2017-02-19 11:22 | Observation (INO) | payer OTHER ==
[2017-02-19] MEDS ORDERED: Haloperidol Lactate 2 mg/ml Liquid PO STA (13:31)
--- NOTE | 2017-02-19 13:44 | ED PDOC ---
HPI: Psych/Substance Abuse Time Seen by Provider: 02/19/17 12:11 Chief Complaint (Nursing): Psychiatric Evaluation Chief Complaint (Provider): Depression History Per: Patient History/Exam Limitations: no limitations Additional Complaint(s): Kenyon Salguero, a 26 year old male, presents to the ED for depression as his mother . He states that he only wants to speak with with a jet worker as he believes that he does not have any medical problems. This patient is well known to the PA-C. He was seen yesterday in the ED and screened by [facility] [place] [place] and also had a face to face encounter with Dr. Mckeon and was cleared for discharge. As soon as the patient was discharged he called 911 and requested to return to the ED at [place]. Pt. states he does have SI but no plan or HI. Denies hallucinations. Offers no medical complaints. Past Medical History Reviewed: Historical Data, Nursing Documentation, Vital Signs Vital Signs: Last Vital Signs Temp 97.6 F 02/19/17 11:35 Pulse 96 H 02/19/17 11:35 Resp 19 02/19/17 11:35 BP 117/65 02/19/17 11:35 Pulse Ox 99 02/19/17 11:35 - Medical History PMH: Anxiety, Asthma, Bipolar Disorder, Depression, Diabetes (per pt), Fractures (hx. right wrist), HTN, Hypercholesterolemia, Migraine, Schizophrenia , Sleep Apnea Denies: Hepatitis, HIV, Chronic Kidney Disease, Seizures, Sexually Transmitted Disease - Surgical History Surgical History: No Surg Hx - Family History Family History: States: Unknown Family Hx - Immunization History Hx Tetanus Toxoid Vaccination: No Hx Influenza Vaccination: No Hx Pneumococcal Vaccination: No - Home Medications Home Medications: Ambulatory Orders Medication Instructions Recorded Benztropine [Cogentin] 1 mg PO BID #28 tab 01/16/17 Divalproex [Depakote DR(*BID*)] 1,000 mg PO HS #28 tcp 01/16/17 Divalproex [Depakote] 750 mg PO DAILY #42 tcp 01/16/17 Haloperidol [Haldol] 10 mg PO BID #28 tab 01/16/17 Sertraline [Zoloft] 50 mg PO DAILY #14 tab 01/16/17 traZODone [Desyrel] 50 mg PO HS #14 tab 01/16/17 - Allergies Allergies/Adverse Reactions: Allergies Allergy/AdvReac Type Severity Reaction Status Date / Time pollen extracts Allergy REDNESS Verified 02/19/17 11:47 Review of Systems Review Of Systems: ROS cannot be obtained secondary to pt's inabilty to answer questions. Physical Exam - Reviewed Nursing Documentation Reviewed: Yes Vital Signs Reviewed: Yes - Physical Exam Appears: Positive for: Non-toxic, No Acute Distress Head Exam: Positive for: ATRAUMATIC, NORMOCEPHALIC Skin: Positive for: Normal Color, Warm, Dry Eye Exam: Positive for: Normal appearance Neck: Positive for: Normal, Painless ROM, Supple Cardiovascular/Chest: Positive for: Regular Rate, Rhythm. Negative for: Chest Non Tender, Tachycardia Respiratory: Positive for: Normal Breath Sounds. Negative for: Wheezing, Respiratory Distress Gastrointestinal/Abdominal: Positive for: Normal Exam, Bowel Sounds, Soft. Negative for: Tenderness Back: Positive for: Normal Inspection. Negative for: L CVA Tenderness, R CVA Tenderness Extremity: Positive for: Normal ROM. Negative for: Deformity, Swelling Neurologic/Psych: Positive for: Alert, Oriented, Mood/Affect (Evasive/Irritable ) - Laboratory Results Result Diagrams: 02/19/17 14:14 02/19/17 13:58 - ECG O2 Sat by Pulse Oximetry: 99 (RA) Pulse Ox Interpretation: Normal Medical Decision Making Medical Decision Makin:11 Initial Impression: Depression Initial Plan: * EKG * Alcohol serum * CMP * Drug screen * Crisis evaluation * CBC * CXR portable * Ativan 2 mg PO * 1:1 obs for suicide precaution Scribe Attestation Documented by Didi Myles acting as a scribe for Toby Champagne PA-C. Provider Attestation: All medical record entries made by the Scribe were at my direction and personally dictated by me. I have reviewed the chart and agree that the record accurately reflects my personal performance of the history, physical exam, medical decision making, and the department course for this patient. I have also personally directed, reviewed, and agree with the discharge instructions and disposition. ED OBSERVATION Discharge: Yes Date of observation admission: 02/19/17 Time of observation admission: 13:35 - Observation admission statement Patient is being placed in observation because:: [facility] [place] [place] screen - Progress Note Progress Note: 02/19/17 15:08 Pt. refusing EKG and CXR to be done. As per BALDEMAR Fabian, pt. does not require EKG or CXR at this time. 02/19/17 17:00 No distress. Seen eating. 02/19/17 19:32 CXR: NAD EKG: SR at [address]-T wave changes Patient is medically cleared for psychiatric evaluation. 02/19/17 22:15 [facility] [place] [place] screener at bedside. 02/19/17 23:46 As per [facility] [place] [place] screen pt. does not meet criteria for commitment. As per Dr. Laguna pt. does not meet criteria for admission to [facility]. Disposition - Clinical Impression Clinical Impression: Mood disorder - Patient ED Disposition Is Patient to be Admitted: No - Disposition Disposition: Routine/Home Disposition Time: 23:48 Condition: STABLE
[2017-02-19 14:24] LABS: BASO # 0.1 K/uL (0.0-0.2); BASO % 0.9 % (0.0-2.0); EOS # 0.2 K/uL (0.0-0.7); EOS % 2.7 % (0.0-4.0); HEMATOCRIT 40.9 % (35.0-51.0); LYMPH # 1.7 K/uL (1.0-4.3); LYMPH % 29.5 % (20.0-40.0); MEAN CELL VOLUME 82.7 fl (80.0-94.0); MEAN CORPUSCULAR HGB CONC 32.7 g/dL (33.0-37.0); MONO # 0.4 K/uL (0.0-0.8); MONO % 6.6 % (0.0-10.0); NEUT # 3.5 K/uL (1.8-7.0); NEUT % 60.3 % (50.0-75.0); NRBC % 0.1 % (0.0-0.0); RED CELL DISTRIBUTION WIDTH 17.2 % (11.5-14.5); WHITE BLOOD COUNT 5.8 K/uL (4.8-10.8)
[2017-02-19 14:38] LABS: ALB/GLOB RATIO 1.4 (1.0-2.1); ALCOHOL SERUM < 10 mg/dl (0-10); ALKALINE PHOSPHATASE 47 U/L (38-126); ALT/SGPT 45 U/L (21-72); AST/SGOT 27 U/L (17-59); BLOOD UREA NITROGEN 11 mg/dl (9-20); CALCIUM 9.1 mg/dL (8.4-10.2); CARBON DIOXIDE 26 mmol/L (22-30); CHLORIDE 103 mmol/L (98-107); GFR AFRICAN-AMERICAN > 60; GLUCOSE,RANDOM 112 mg/dL (75-110); POTASSIUM 3.8 MMOL/L (3.6-5.0); SODIUM 139 mmol/l (132-148); TOTAL PROTEIN 7.6 G/DL (6.3-8.2)
[2017-02-19 15:19] LABS: RBC URINE < 1 /hpf (0-3); URINE BACTERIA RARE (<OCC); URINE BILIRUBIN NEGATIVE (NEGATIVE); URINE BLOOD NEGATIVE (NEGATIVE); URINE COLOR YELLOW (YELLOW); URINE GLUCOSE (UA) NEG (Normal); URINE KETONE NEGATIVE (NEGATIVE); URINE LEUKOCYTE ESTERASE NEG Leu/uL (Negative); URINE PROTEIN NEGATIVE (NEGATIVE); URINE UROBILINOGEN 0.2-1.0 mg/dL (0.2-1.0); WBC URINE 1 /hpf (0-5)
[2017-02-20 00:10] VITALS: BP 127/81; PULSE 79; RESP 16; TEMP 98.9; O2SAT 100
--- NOTE | 2017-02-20 10:59 | RAD ---
HISTORY: clearance COMPARISON: 02/03/2017 FINDINGS: LUNGS: Poor inspiration with low lung volumes, mild crowded bronchovascular markings and mild bibasilar atelectasis PLEURA: No significant pleural effusion identified, no pneumothorax apparent. CARDIOVASCULAR: Normal. OSSEOUS STRUCTURES: No significant abnormalities. VISUALIZED UPPER ABDOMEN: Normal. OTHER FINDINGS: None. IMPRESSION: Poor inspiration with low lung volumes, mild crowded bronchovascular markings and mild bibasilar atelectasis
--- NOTE | 2017-02-21 18:57 | CARD ---
APPROVED REPORT EKG Measurement Heart [id number] <Conclusion> Normal sinus rhythm Normal ECG
== END 2017-02-19 23:48 | disposition home or self-care (01) ==
LOC: H.ER 11:22 → H.EROBSV 13:35
PROVIDERS: ADMIT Emergency Medicine; ATTEND Emergency Medicine
DX: F32.9 Major depressive disorder, single episode, unspecified (principal); F39 Unspecified mood [affective] disorder; E78.00 Pure hypercholesterolemia, unspecified; I10 Essential (primary) hypertension; G47.30 Sleep apnea, unspecified; F20.9 Schizophrenia, unspecified; E11.9 Type 2 diabetes mellitus without complications; F31.9 Bipolar disorder, unspecified; J45.909 Unspecified asthma, uncomplicated

== ENCOUNTER 2017-06-07 05:33 | Observation (INO) | payer MEDICAID, OTHER ==
[2017-06-07 05:34] VITALS: BMI 35.9
[2017-06-07 06:01] VITALS: RESP 16
--- NOTE | 2017-06-07 06:23 | ED PDOC ---
HPI: Psych/Substance Abuse Time Seen by Provider: 06/07/17 05:36 Chief Complaint (Nursing): Substance Abuse Chief Complaint (Provider): Substance abuse History Per: Patient History/Exam Limitations: no limitations Onset/Duration Of Symptoms: Hrs (x6) Current Symptoms Are (Timing): Still Present Suicide/Self Injury Attempted (Context): Ingestion (10 pills in total including adderall, risperdal, and ecstasy) Additional Complaint(s): Kenyon Salguero is a 27 year old male, with a past medical history of schizophrenia, bipolar disorder, and drug abuse, who presents to the emergency department complaining of intentional overdose between 11pm yesterday and 4am today. Patient reports he took 10 pills in total including adderall, risperdal, and ecstasy. Patient also reports drinking alcohol and smoking tobacco with the intentions of harming himself. Patient states he hears voices telling him to hurt himself. He feels homicidal towards "random people" and states his medication is making him feel agitated secondary to chest pain. PMD: None provided. Past Medical History Reviewed: Historical Data, Nursing Documentation, Vital Signs Vital Signs: Last Vital Signs Temp 98.8 F 06/07/17 05:58 Pulse 103 H 06/07/17 05:58 Resp 16 06/07/17 05:58 BP 144/74 06/07/17 05:58 Pulse Ox 100 06/07/17 05:58 - Medical History PMH: Anxiety, Asthma, Bipolar Disorder, Depression, Diabetes (per pt), Fractures (hx. right wrist), HTN, Hypercholesterolemia, Migraine, Schizophrenia , Sleep Apnea Denies: Hepatitis, HIV, Chronic Kidney Disease, Seizures, Sexually Transmitted Disease - Family History Family History: States: Unknown Family Hx - Social History Current smoker - smoking cessation education provided: Yes (Light smoker <10 cigarettes daily) Alcohol: < 2 Drinks/Day Drugs: Prescription medications, Other (ecstasy) - Immunization History Hx Tetanus Toxoid Vaccination: No Hx Influenza Vaccination: No Hx Pneumococcal Vaccination: No - Home Medications Home Medications: Ambulatory Orders Medication Instructions Recorded LORazepam [Ativan] 1 mg PO HS 05/20/17 risperiDONE [RisperDAL Tab] 1 mg PO BID 05/20/17 predniSONE [Prednisone] 20 mg PO BID #10 tab 05/29/17 - Allergies Allergies/Adverse Reactions: Allergies Allergy/AdvReac Type Severity Reaction Status Date / Time pollen extracts Allergy REDNESS Verified 05/20/17 16:56 Review of Systems ROS Statement: Except As Marked, All Systems Reviewed And Found Negative Cardiovascular: Positive for: Chest Pain Psych: Positive for: Suicidal ideation (& homicidal ideation), Other (agitated) Physical Exam - Reviewed Nursing Documentation Reviewed: Yes Vital Signs Reviewed: Yes - Physical Exam Appears: Positive for: No Acute Distress Head Exam: Positive for: ATRAUMATIC, NORMAL INSPECTION, NORMOCEPHALIC Skin: Positive for: Normal Color, Warm, Dry Eye Exam: Positive for: EOMI, Normal appearance, PERRL Neck: Positive for: Normal, Painless ROM, Supple Cardiovascular/Chest: Positive for: Regular Rate, Rhythm. Negative for: Murmur Respiratory: Positive for: Normal Breath Sounds. Negative for: Respiratory Distress Gastrointestinal/Abdominal: Positive for: Normal Exam, Bowel Sounds, Soft. Negative for: Tenderness Extremity: Positive for: Normal ROM. Negative for: Tenderness, Pedal Edema, Deformity Neurologic/Psych: Positive for: Alert, Oriented, Mood/Affect (psych strange affect). Negative for: Motor/Sensory Deficits - ECG O2 Sat by Pulse Oximetry: 100 (RA) Pulse Ox Interpretation: Normal Medical Decision Making Medical Decision Making: Initial Impression: Intentional overdose decompensated by bipolar disorder and schizophrenia. Initial Plan: --EKG --Acetaminophen --Alcohol serum --Basic Metabolic Panel --CPK --Drug screen, urine --Salicylate --Troponin I --Crisis evaluation --CBC w/ differential --Chest one view [RAD] --1:1 observation --reevaluation 0700 -Patient will be signed off to Dr. Rosen. Scribe Attestation: Documented by Ronnie Meek, acting as a scribe for Kirby Calderon MD. Provider Scribe Attestation: All medical record entries made by the Scribe were at my direction and personally dictated by me. I have reviewed the chart and agree that the record accurately reflects my personal performance of the history, physical exam, medical decision making, and the department course for this patient. I have also personally directed, reviewed, and agree with the discharge instructions and disposition. ED OBSERVATION Time of observation admission: 06:30 - Observation admission statement Patient is being placed in observation because:: Need for resolution of acute symptoms - Goals of Observation Goals of observation are:: Psychiatric stabilization - Progress Note Progress Note: 06/07/17 06:36 Patient is awake, vitals are stable, but symptoms persist Disposition - Clinical Impression Clinical Impression: Polysubstance abuse, Bipolar 1 disorder, Schizoaffective disorder - Disposition Disposition: Transfer of Care Disposition Time: 07:00 Condition: STABLE Forms: [facility] (Macedonian) Patient Signed Over To: Jess Rosen Handoff Comments: pending workup and crisis eval
[2017-06-07] MEDS ORDERED: Sodium Chloride 0.9% 1,000 ML IV STA (06:33)
[2017-06-07 06:41] LABS: BASO # 0.1 K/uL (0.0-0.2); EOS # 0.1 K/uL (0.0-0.7); EOS % 1.2 % (0.0-4.0); HEMATOCRIT 44.1 % (35.0-51.0); LYMPH # 2.4 K/uL (1.0-4.3); LYMPH % 32.2 % (20.0-40.0); MEAN CELL VOLUME 82.5 fl (80.0-94.0); MEAN CORPUSCULAR HEMOGLOBIN 26.7 pg (27.0-31.0); MEAN CORPUSCULAR HGB CONC 32.4 g/dL (33.0-37.0); MEAN PLATELET VOLUME 9.3 fl (7.2-11.7); MONO # 0.7 K/uL (0.0-0.8); MONO % 9.8 % (0.0-10.0); NEUT # 4.1 K/uL (1.8-7.0); NEUT % 55.8 % (50.0-75.0); RED CELL DISTRIBUTION WIDTH 14.4 % (11.5-14.5); WHITE BLOOD COUNT 7.3 K/uL (4.8-10.8)
[2017-06-07 06:55] LABS: ALCOHOL SERUM < 10 mg/dl (0-10); BLOOD UREA NITROGEN 8 mg/dl (9-20); CALCIUM 9.5 mg/dL (8.4-10.2); CARBON DIOXIDE 22 mmol/L (22-30); CHLORIDE 105 mmol/L (98-107); GFR AFRICAN-AMERICAN > 60; GLUCOSE,RANDOM 88 mg/dL (75-110); POTASSIUM 3.7 MMOL/L (3.6-5.0); SODIUM 141 mmol/l (132-148)
--- NOTE | 2017-06-07 07:16 | ED PDOC ---
- Laboratory Results Result Diagrams: 06/07/17 06:28 06/07/17 06:28 - ECG O2 Sat by Pulse Oximetry: 100 (RA) Disposition - Clinical Impression Clinical Impression: Schizoaffective disorder - POA Present On Arrival: None - Disposition Disposition: Routine/Home Disposition Time: 08:56 Condition: STABLE Addendum Addendum: 06/07/17 07:00 Pt signed out by Dr. Calderon pending Crisis evaluation.
[2017-06-07 07:55] VITALS: BP 121/76; PULSE 88; TEMP 98.4
--- NOTE | 2017-06-07 10:01 | RAD ---
PROCEDURE: CHEST RADIOGRAPH, 1 VIEW. Portable study 06:40. HISTORY: overdose, chest pain. COMPARISON: 02/19/2017. FINDINGS: LUNGS: Clear. PLEURA: No pneumothorax or pleural fluid seen. CARDIOVASCULAR: Normal. OSSEOUS STRUCTURES: No significant abnormalities. VISUALIZED UPPER ABDOMEN: Normal. OTHER FINDINGS: None. IMPRESSION: No active disease. No acute/significant interval changes.
[2017-06-08 10:07] VITALS: O2SAT 100
--- NOTE | 2017-06-09 11:23 | CARD ---
APPROVED REPORT EKG Measurement Heart [id number] [id number] <Conclusion> Sinus tachycardia Left ventricular hypertrophy with repolarization abnormality Abnormal ECG
== END 2017-06-07 09:19 | disposition home or self-care (01) ==
LOC: H.ER 05:33 → H.EROBSV 06:18
PROVIDERS: ADMIT Emergency Medicine; ATTEND Emergency Medicine
DX: F25.9 Schizoaffective disorder, unspecified (principal); F19.10 Other psychoactive substance abuse, uncomplicated; F31.9 Bipolar disorder, unspecified; E11.9 Type 2 diabetes mellitus without complications; J45.909 Unspecified asthma, uncomplicated; E78.00 Pure hypercholesterolemia, unspecified; G47.30 Sleep apnea, unspecified; I10 Essential (primary) hypertension; F17.210 Nicotine dependence, cigarettes, uncomplicated
CPT/HCPCS: 71010; 80048; 80320; 80324; 80329; 80345; 80346; 80349; 80353; 80358; 80361; 82550; 83992; 84484; 85025; 93005; 96360; 96361; 99285; G0378; J7040